=== PATIENT | female | born 1950 | race Caucasian/White ===

== ENCOUNTER 2016-12-13 20:21 | Inpatient (IN) | payer MEDICARE, MEDICAID, SELFPAY ==
[2016-12-13] MEDS ORDERED: SODIUM CHLORIDE 0.9% 10 ML FLUSH FLUSH PRN (21:07)
[2016-12-13] MEDS ORDERED: HYDROmorphone 1 MG INJECTION IV ONE ×3 (21:08→23:23)
[2016-12-13 21:28] LABS: BLOOD UREA NITROGEN 21 MG/DL (7-17); CALCIUM 8.6 MG/DL (8.4-10.2); CALCULATED OSMOLALITY 270 MOs/Kg (270-290); CHLORIDE 96 mEq/L (98-107); GLUCOSE 352 MG/DL (70-99); SODIUM LEVEL 131 mEq/L (137-146); TOTAL PROTEIN 6.7 G/DL (6.3-8.2)
--- NOTE | 2016-12-13 21:30 | DIRPT ---
CLINICAL DATA: 66-year-old female with chest pain EXAM: PORTABLE CHEST 1 VIEW COMPARISON: CT dated 11/03/2016 FINDINGS: Single-view of the chest demonstrates mild emphysematous changes of the lungs. There is no focal consolidation, pleural effusion, or pneumothorax. Right pectoral Port-A-Cath with tip over the upper SVC similar to the CT. A 1.7 x 2.2 cm focal radiopaque is noted over the right mid lung field. This is not seen on the prior CT and may represent a foreign object overlying the patient. Clinical correlation recommended. The cardiac silhouette is within normal limits. The osseous structures appear unremarkable. IMPRESSION: No acute cardiopulmonary process. Electronically Signed By: Dax Rodriguez M.D. On: 12/13/2016 21:27
[2016-12-13 21:31] LABS: PARTIAL THROMB. TIME 25.9 SEC (22-35); PT-INR 1.1
[2016-12-13 21:49] LABS: LEUKOCYTES/URINE TRACE (NEGATIVE); NITRITE/URINE NEG (NEGATIVE); URINE OCCULT BLOOD 1+ (NEG/TRACE)
[2016-12-13 21:53] LABS: SEG NEUTROPHIL 96 % (45-76)
[2016-12-13 21:54] LABS: TOTAL CELL COUNT 100
[2016-12-13] MEDS ORDERED: ACETAMINOPHEN 325 MG/TAB TABLET PO ONE (22:07)
--- NOTE | 2016-12-13 22:16 | EDPRACDOC ---
- General Information Information Source: Patient Mode of Arrival: Car - History of Present Illness Onset: airline captain HPI: PT PRESENTS TODAY WITH FEVER AT HOME OF 104.2. PT HAS PMH OF PANCREATIC CANCER AND IS CURRENTLY FOLLOWING DR. LUTZ. PT HAD CHEMO TREATMENT EARLIER TODAY. PT C/O GENERALIZED ACHES, DIFFUSE ABD PAIN (THAT IS CHRONIC) AND NAUSEA. DENIES CP, SHOB, VOMITING/DIARRHEA. PT DOES NOT APPEAR TO BE IN ANY DISTRESS AT THIS TIME. Relevant History: Reports: Chronic Illness Treated Infection: Antibiotic (DOXYCYCLINE) Max Temperature: 104.2 F Improves With: Reports: Tylenol Symptoms: Reports: Fever, Abdominal Pain, Myalgia, Nausea <Lily Hay - Last Filed: 12/13/16 22:14> <Deric Solano - Last Filed: 12/13/16 22:41> - General Information Chief Complaint: Generalized Weakness Stated Complaint: FEVER HAD CHEMO TODAY C/O BILATERAL LEG,JOINTS & B Time Seen by Provider: 12/13/16 20:44 Home Medications: Home Medications Albuterol Sulfate [Proventil Hfa] 1 - 2 puff INH Q4H 06/08/13 Aspirin [Aspirin EC] 325 mg PO DAILY 06/08/13 Escitalopram Oxalate 20 mg PO DAILY 06/08/13 Hydrochlorothiazide 25 mg PO DAILY 06/08/13 Metoprolol Tartrate 25 mg PO BID 06/08/13 Potassium Chloride [Klor-Con 10] 10 meq PO DAILY 06/08/13 Quinapril HCl [Accupril] 40 mg PO DAILY 06/08/13 Alprazolam [Xanax] 1 mg PO TID 01/14/16 Cyanocobalamin (Vitamin B-12) [Cyanocobalamin Injection] 1,000 mcg IJ QMONTH Epinephrine [Epipen] 0.3 mg IM DAILY PRN 01/14/16 Fexofenadine HCl [Deb] 180 mg PO DAILY PRN 01/14/16 Insulin Lispro [Humalog] 80 unit SQ TIDAC 01/14/16 Omeprazole [Prilosec] 20 mg PO DAILY 01/14/16 Lipase/Protease/Amylase [Jennie Blood 24,000 Units Capsule] 1 cap PO DIR Cetirizine HCl 10 mg PO DAILY 10/29/16 Ergocalciferol (Vitamin D2) [Vitamin D] 50,000 units PO WE 10/29/16 Hydrocodone Bit/Acetaminophen [[place] 10-325 Tablet] 1 tab PO Q6H PRN 10/29/16 Insulin Glargine,Hum.rec.anlog [Toucricketo Solostar] 90 unit SQ DAILY 10/29/16 Promethazine HCl [Phenergan] 12.5 mg PO Q6H PRN 10/29/16 Acetaminophen [Mapap] 500 mg PO .ONCE 12/13/16 Allergies/Adverse Reactions: Allergies Allergy/AdvReac Type Severity Reaction Status Date / Time clindamycin Allergy Severe Hives* Verified 10/26/16 18:42 aminobenzoic acid Allergy Unknown Rash-Genera Verified 10/26/16 18:41 [From [id number]] lized aspirin Allergy Unknown Rash-Genera Verified 10/29/16 08:05 lized atorvastatin calcium Allergy Unknown Rash-Genera Verified 10/26/16 18:41 [From Lipitor] lized carisoprodol [From Soma] Allergy Unknown Rash-Genera Verified 10/26/16 18:41 lized cefaclor [From Ceclor] Allergy Unknown Rash-Genera Verified 10/26/16 18:41 lized hydrocodone bitartrate Allergy Unknown Rash-Genera Verified 10/26/16 18:41 [From Hycomine] lized nitrofurantoin Allergy Unknown Rash-Genera Verified 10/26/16 18:41 macrocrystalline lized [From Macrodantin] oxybenzone Allergy Unknown Rash-Genera Verified 10/26/16 18:41 [From [id number]-[id number]] lized padimate O Allergy Unknown Rash-Genera Verified 10/26/16 18:41 [From [id number]] lized Penicillins Allergy Unknown Rash-Genera Verified 10/26/16 18:41 lized phenylpropanolamine HCl Allergy Unknown Rash-Genera Verified 10/26/16 18:41 [From Hycomine] lized simvastatin [From Zocor] Allergy Unknown Rash-Genera Verified 10/26/16 18:41 lized Sulfa (Sulfonamide Allergy Unknown Rash-Genera Verified 10/26/16 18:41 Antibiotics) lized tetanus and diphtheria Allergy Unknown Rash-Locali Verified 10/26/16 18:41 toxoids zed [Tetanus&Diphtheria Toxoid] venom-honey bee Allergy Unknown Edema-Gener Verified 10/26/16 18:41 [bee venom (honey bee)] alized ciprofloxacin [From Cipro] Allergy Hives* Verified 10/29/16 08:05 hyoscyamine [From Levsin] Allergy Difficulty Verified 10/29/16 08:05 Breathing ibuprofen [From Motrin] Allergy Rash-Genera Verified 10/26/16 18:41 lized Iodinated Contrast Media - Allergy Rash-Genera Verified 10/26/16 18:41 IV Dye lized [IV Dye, Iodine Containing Contrast ] levofloxacin [From Levaquin] Allergy Edema-Oral/ Verified 10/29/16 08:05 Lip naproxen sodium [From Aleve] Allergy Rash-Genera Verified 10/26/16 18:41 lized orphenadrine Allergy See Verified 10/29/16 08:05 Comments niacin AdvReac Severe Anaphylaxis Verified 10/26/16 18:41 [From Niaspan * Extended-Release] ED Past Medical History - History Reviewed Yes Nurses notes reviewed and agree except as marked - Patient Medical History Cardiac History: Reports: Hypertension, Cardiac Catheterization (Neg stress test prior), Hypercholesterolemia Respiratory History: Reports: Asthma, COPD. Denies: Pulmonary Embolism GI/ History: Reports: Kidney Stones Musculoskeletal History: Reports: Arthritis Psychological History: Reports: Depression, Anxiety Systemic History: Reports: Cancer (pacreatic), Anemia, Diabetes Surgical History: Reports: Cholecystectomy, Cardiac Catheterization (Neg stress test prior). Denies: Hysterectomy - Family Medical History Reports: Hypertension (MOTHER, SIBLINGS), Diabetes (SIBLINGS), Cancer (SISTER BREAST CA, FATHER THROAT CA), Stroke (SIBLINGS), Cardiac Disorders (FATHER OF DC, SISTER ) - Social Medical History Smoking Status: Never smoker <Lily Hay - Last Filed: 12/13/16 22:14> EDM Review of Systems - Review of Systems ROS Negative Except as Marked: Yes All systems reviewed and were negative except as marked Constitutional: Fever, Fatigue Eyes: No Symptoms Reported Ears: No Symptoms Reported Throat: No Symptoms Reported Nose: No Symptoms Reported Respiratory: No Symptoms Reported Cardiovascular: No Symptoms Reported Gastrointestinal: Nausea, Pain Genitourinary: No Symptoms Reported Neurological: No Symptoms Reported Musculoskeletal: No Symptoms Reported Integumentary: No Symptoms Reported <Lily Hay - Last Filed: 12/13/16 22:14> - Physical Exam Constitutional: No apparent distress, Alert (Awake), Other (GENERALLY CHRONICALLY ILL APPEARING) Oriented to: Time, Person, Place Last recorded Vital Signs: Last Vital Signs Temp 102.5 F H 12/13/16 21:36 Pulse 98 12/13/16 21:34 Resp 18 12/13/16 21:34 BP 131/61 12/13/16 21:34 Pulse Ox 96 12/13/16 21:34 Oxygen Pulse Oxygen Saturation 96 O2 Device Room Air Oxygen Flow Rate Fraction of Inspired Oxygen ( FIO2) - HEENT Head: Normal Eye Exam: Normal Neck: Normal, Denies Pain, Midline - Respiratory/Cardiovascular Respiratory: Normal - CTA Cardiovascular: Tachycardia - GI Auscultation: Normal Palpation: Normal Tenderness: Diffuse, Moderate - Musculoskeletal Back: Normal Extremities: Normal - Integumentary Skin: Warm, Pale Lymphatics: Normal - Neurologic Cerebellar: Normal Mood Description: Normal Thought: Coherent Perception: Normal <Lily Hay - Last Filed: 12/13/16 22:14> - Physical Exam Last recorded Vital Signs: Last Vital Signs Temp 102.9 F H 12/13/16 22:13 Pulse 93 12/13/16 22:13 Resp 18 12/13/16 22:13 BP 130/60 12/13/16 22:13 Pulse Ox 94 12/13/16 22:13 Oxygen Pulse Oxygen Saturation 94 O2 Device Room Air Oxygen Flow Rate Fraction of Inspired Oxygen ( FIO2) <Deric Solano - Last Filed: 12/13/16 22:41> - Results 12/13/16 20:50 12/13/16 20:50 WBC 3.0 xk/uL (3.8-10.8) L 12/13/16 20:50 RBC 4.09 xM/uL (4.20-5.40) L 12/13/16 20:50 Hgb 11.8 g/dL (12.0-16.0) L 12/13/16 20:50 Hct 35.3 % (36-47) L 12/13/16 20:50 MCV 86 fL (81-99) 12/13/16 20:50 MCH 28.7 pg (27-32) 12/13/16 20:50 MCHC 33.3 g/dl (33-36) 12/13/16 20:50 RDW 16.1 % (11.5-14.5) H 12/13/16 20:50 Plt Count 352 xk/uL (130-400) 12/13/16 20:50 MPV 8.0 fL (7.4-10.4) 12/13/16 20:50 Neut % (Auto) Cancelled 12/13/16 20:50 Lymph % (Auto) Cancelled 12/13/16 20:50 [place] % (Auto) Cancelled 12/13/16 20:50 Eos % (Auto) Cancelled 12/13/16 20:50 Baso % (Auto) Cancelled 12/13/16 20:50 Absolute Neuts (auto) Cancelled 12/13/16 20:50 Absolute Lymphs (auto) Cancelled 12/13/16 20:50 Seg Neuts % (Manual) 96 % (45-76) H 12/13/16 20:50 Band Neutrophils % 0 % (0-5) 12/13/16 20:50 Lymphocytes % (Manual) 4 % (17-44) L 12/13/16 20:50 Absolute Neutrophils 2.88 xk/uL (1.7-8.2) 12/13/16 20:50 Absolute Lymphocytes 0.12 xk/uL (0.65-4.75) L 12/13/16 20:50 Platelet Estimate Plt clumps present (NORMAL) 12/13/16 20:50 RBC Morphology 1+ aniso 12/13/16 20:50 PT 11.0 SEC (9.2-11.2) 12/13/16 20:50 INR 1.1 12/13/16 20:50 APTT 25.9 SEC (22-35) 12/13/16 20:50 Sodium 131 mEq/L (137-146) L 12/13/16 20:50 Potassium 3.6 mEq/L (3.5-5.1) 12/13/16 20:50 Chloride 96 mEq/L (98-107) L 12/13/16 20:50 Carbon Dioxide 23 mMOL/L (22-33) 12/13/16 20:50 Anion Gap 16 mEq/L (8-16) 12/13/16 20:50 BUN 21 MG/DL (7-17) H 12/13/16 20:50 Creatinine 1.10 MG/DL (0.52-1.04) H 12/13/16 20:50 Estimated GFR (MDRD) 50 mL/min (>=60) L 12/13/16 20:50 Glucose 352 MG/DL (70-99) H 12/13/16 20:50 Calculated Osmolality 270 MOs/Kg (270-290) 12/13/16 20:50 Lactic Acid 3.5 mEq/L (0.7-2.1) H 12/13/16 20:50 Calcium 8.6 MG/DL (8.4-10.2) 12/13/16 20:50 Corrected Calcium 9.0 MG/DL (8.4-10.2) 12/13/16 20:50 Total Bilirubin 0.6 MG/DL (0.2-1.3) 12/13/16 20:50 AST 66 IU/L (14-36) H 12/13/16 20:50 ALT 75 IU/L (9-52) H 12/13/16 20:50 Alkaline Phosphatase 116 IU/L (55-165) 12/13/16 20:50 Troponin I < 0.01 ng/mL (<.04) 12/13/16 20:50 Total Protein 6.7 G/DL (6.3-8.2) 12/13/16 20:50 Albumin 3.6 G/DL (3.5-5.0) 12/13/16 20:50 Urine Color Yellow 12/13/16 21:35 Urine Clarity Hazy 12/13/16 21:35 Urine pH 5.0 (5.0-8.0) 12/13/16 21:35 Ur Specific [place] 1.010 12/13/16 21:35 Urine Protein Trace (NEG/TRACE) 12/13/16 21:35 Urine Glucose (UA) 3+ (NEGATIVE) H 12/13/16 21:35 Urine Ketones Neg (NEGATIVE) 12/13/16 21:35 Urine Occult Blood 1+ (NEG/TRACE) H 12/13/16 21:35 Urine Nitrite Neg (NEGATIVE) 12/13/16 21:35 Urine Bilirubin Neg (NEGATIVE) 12/13/16 21:35 Urine Urobilinogen 0.2 MG/DL (0-1) 12/13/16 21:35 Ur Leukocyte Esterase Trace (NEGATIVE) 12/13/16 21:35 Urine RBC 2-5 (0-5) 12/13/16 21:35 Urine WBC 5-10 (0-5) H 12/13/16 21:35 Ur Epithelial Cells 2+ 12/13/16 21:35 Urine Bacteria 1+ (NEG/FEW) H 12/13/16 21:35 Hyaline Casts 0-2 (0-2) 12/13/16 21:35 Urine Mucus Occ (NEG/OCC) 12/13/16 21:35 Lab Results 12/13/16 12/13/16 12/13/16 21:35 20:50 20:50 WBC RBC Hgb Hct MCV MCH MCHC RDW Plt Count MPV Neut % (Auto) Lymph % (Auto) [place] % (Auto) Eos % (Auto) Baso % (Auto) Absolute Neuts (auto) Absolute Lymphs (auto) Seg Neuts % (Manual) Band Neutrophils % Lymphocytes % (Manual) Absolute Neutrophils Absolute Lymphocytes Platelet Estimate RBC Morphology PT 11.0 INR 1.1 APTT 25.9 Sodium Potassium Chloride Carbon Dioxide Anion Gap BUN Creatinine Estimated GFR (MDRD) Glucose Calculated Osmolality Lactic Acid 3.5 H Calcium Corrected Calcium Total Bilirubin AST ALT Alkaline Phosphatase Troponin I Total Protein Albumin Urine Color Yellow Urine Clarity Hazy Urine pH 5.0 Ur Specific [place] 1.010 Urine Protein Trace Urine Glucose (UA) 3+ H Urine Ketones Neg Urine Occult Blood 1+ H Urine Nitrite Neg Urine Bilirubin Neg Urine Urobilinogen 0.2 Ur Leukocyte Esterase Trace Urine RBC 2-5 Urine WBC 5-10 H Ur Epithelial Cells 2+ Urine Bacteria 1+ H Hyaline Casts 0-2 Urine Mucus Occ 12/13/16 12/13/16 20:50 20:50 WBC 3.0 L RBC 4.09 L Hgb 11.8 L Hct 35.3 L MCV 86 MCH 28.7 MCHC 33.3 RDW 16.1 H Plt Count 352 MPV 8.0 Neut % (Auto) Cancelled Lymph % (Auto) Cancelled [place] % (Auto) Cancelled Eos % (Auto) Cancelled Baso % (Auto) Cancelled Absolute Neuts (auto) Cancelled Absolute Lymphs (auto) Cancelled Seg Neuts % (Manual) 96 H Band Neutrophils % 0 Lymphocytes % (Manual) 4 L Absolute Neutrophils 2.88 Absolute Lymphocytes 0.12 L Platelet Estimate Plt clumps present RBC Morphology 1+ aniso PT INR APTT Sodium 131 L Potassium 3.6 Chloride 96 L Carbon Dioxide 23 Anion Gap 16 BUN 21 H Creatinine 1.10 H Estimated GFR (MDRD) 50 L Glucose 352 H Calculated Osmolality 270 Lactic Acid Calcium 8.6 Corrected Calcium 9.0 Total Bilirubin 0.6 AST 66 H ALT 75 H Alkaline Phosphatase 116 Troponin I < 0.01 Total Protein 6.7 Albumin 3.6 Urine Color Urine Clarity Urine pH Ur Specific [place] Urine Protein Urine Glucose (UA) Urine Ketones Urine Occult Blood Urine Nitrite Urine Bilirubin Urine Urobilinogen Ur Leukocyte Esterase Urine RBC Urine WBC Ur Epithelial Cells Urine Bacteria Hyaline Casts Urine Mucus - EKG EKG #1 EKG Time: 21:20 -: Yes EKG interpreted by me Rate: bpm: 99 [place]: Normal Rhythm: NSR Block: None Hypertrophy: None ST: Normal <Lily Hay - Last Filed: 12/13/16 22:14> - Results 12/13/16 20:50 12/13/16 20:50 WBC 3.0 xk/uL (3.8-10.8) L 12/13/16 20:50 RBC 4.09 xM/uL (4.20-5.40) L 12/13/16 20:50 Hgb 11.8 g/dL (12.0-16.0) L 12/13/16 20:50 Hct 35.3 % (36-47) L 12/13/16 20:50 MCV 86 fL (81-99) 12/13/16 20:50 MCH 28.7 pg (27-32) 12/13/16 20:50 MCHC 33.3 g/dl (33-36) 12/13/16 20:50 RDW 16.1 % (11.5-14.5) H 12/13/16 20:50 Plt Count 352 xk/uL (130-400) 12/13/16 20:50 MPV 8.0 fL (7.4-10.4) 12/13/16 20:50 Neut % (Auto) Cancelled 12/13/16 20:50 Lymph % (Auto) Cancelled 12/13/16 20:50 [place] % (Auto) Cancelled 12/13/16 20:50 Eos % (Auto) Cancelled 12/13/16 20:50 Baso % (Auto) Cancelled 12/13/16 20:50 Absolute Neuts (auto) Cancelled 12/13/16 20:50 Absolute Lymphs (auto) Cancelled 12/13/16 20:50 Seg Neuts % (Manual) 96 % (45-76) H 12/13/16 20:50 Band Neutrophils % 0 % (0-5) 12/13/16 20:50 Lymphocytes % (Manual) 4 % (17-44) L 12/13/16 20:50 Absolute Neutrophils 2.88 xk/uL (1.7-8.2) 12/13/16 20:50 Absolute Lymphocytes 0.12 xk/uL (0.65-4.75) L 12/13/16 20:50 Platelet Estimate Plt clumps present (NORMAL) 12/13/16 20:50 RBC Morphology 1+ aniso 12/13/16 20:50 PT 11.0 SEC (9.2-11.2) 12/13/16 20:50 INR 1.1 12/13/16 20:50 APTT 25.9 SEC (22-35) 12/13/16 20:50 Sodium 131 mEq/L (137-146) L 12/13/16 20:50 Potassium 3.6 mEq/L (3.5-5.1) 12/13/16 20:50 Chloride 96 mEq/L (98-107) L 12/13/16 20:50 Carbon Dioxide 23 mMOL/L (22-33) 12/13/16 20:50 Anion Gap 16 mEq/L (8-16) 12/13/16 20:50 BUN 21 MG/DL (7-17) H 12/13/16 20:50 Creatinine 1.10 MG/DL (0.52-1.04) H 12/13/16 20:50 Estimated GFR (MDRD) 50 mL/min (>=60) L 12/13/16 20:50 Glucose 352 MG/DL (70-99) H 12/13/16 20:50 Calculated Osmolality 270 MOs/Kg (270-290) 12/13/16 20:50 Lactic Acid 3.5 mEq/L (0.7-2.1) H 12/13/16 20:50 Calcium 8.6 MG/DL (8.4-10.2) 12/13/16 20:50 Corrected Calcium 9.0 MG/DL (8.4-10.2) 12/13/16 20:50 Total Bilirubin 0.6 MG/DL (0.2-1.3) 12/13/16 20:50 AST 66 IU/L (14-36) H 12/13/16 20:50 ALT 75 IU/L (9-52) H 12/13/16 20:50 Alkaline Phosphatase 116 IU/L (55-165) 12/13/16 20:50 Troponin I < 0.01 ng/mL (<.04) 12/13/16 20:50 Total Protein 6.7 G/DL (6.3-8.2) 12/13/16 20:50 Albumin 3.6 G/DL (3.5-5.0) 12/13/16 20:50 Urine Color Yellow 12/13/16 21:35 Urine Clarity Hazy 12/13/16 21:35 Urine pH 5.0 (5.0-8.0) 12/13/16 21:35 Ur Specific [place] 1.010 12/13/16 21:35 Urine Protein Trace (NEG/TRACE) 12/13/16 21:35 Urine Glucose (UA) 3+ (NEGATIVE) H 12/13/16 21:35 Urine Ketones Neg (NEGATIVE) 12/13/16 21:35 Urine Occult Blood 1+ (NEG/TRACE) H 12/13/16 21:35 Urine Nitrite Neg (NEGATIVE) 12/13/16 21:35 Urine Bilirubin Neg (NEGATIVE) 12/13/16 21:35 Urine Urobilinogen 0.2 MG/DL (0-1) 12/13/16 21:35 Ur Leukocyte Esterase Trace (NEGATIVE) 12/13/16 21:35 Urine RBC 2-5 (0-5) 12/13/16 21:35 Urine WBC 5-10 (0-5) H 12/13/16 21:35 Ur Epithelial Cells 2+ 12/13/16 21:35 Urine Bacteria 1+ (NEG/FEW) H 12/13/16 21:35 Hyaline Casts 0-2 (0-2) 12/13/16 21:35 Urine Mucus Occ (NEG/OCC) 12/13/16 21:35 Lab Results 12/13/16 12/13/16 12/13/16 21:35 20:50 20:50 WBC RBC Hgb Hct MCV MCH MCHC RDW Plt Count MPV Neut % (Auto) Lymph % (Auto) [place] % (Auto) Eos % (Auto) Baso % (Auto) Absolute Neuts (auto) Absolute Lymphs (auto) Seg Neuts % (Manual) Band Neutrophils % Lymphocytes % (Manual) Absolute Neutrophils Absolute Lymphocytes Platelet Estimate RBC Morphology PT 11.0 INR 1.1 APTT 25.9 Sodium Potassium Chloride Carbon Dioxide Anion Gap BUN Creatinine Estimated GFR (MDRD) Glucose Calculated Osmolality Lactic Acid 3.5 H Calcium Corrected Calcium Total Bilirubin AST ALT Alkaline Phosphatase Troponin I Total Protein Albumin Urine Color Yellow Urine Clarity Hazy Urine pH 5.0 Ur Specific [place] 1.010 Urine Protein Trace Urine Glucose (UA) 3+ H Urine Ketones Neg Urine Occult Blood 1+ H Urine Nitrite Neg Urine Bilirubin Neg Urine Urobilinogen 0.2 Ur Leukocyte Esterase Trace Urine RBC 2-5 Urine WBC 5-10 H Ur Epithelial Cells 2+ Urine Bacteria 1+ H Hyaline Casts 0-2 Urine Mucus Occ 12/13/16 12/13/16 20:50 20:50 WBC 3.0 L RBC 4.09 L Hgb 11.8 L Hct 35.3 L MCV 86 MCH 28.7 MCHC 33.3 RDW 16.1 H Plt Count 352 MPV 8.0 Neut % (Auto) Cancelled Lymph % (Auto) Cancelled [place] % (Auto) Cancelled Eos % (Auto) Cancelled Baso % (Auto) Cancelled Absolute Neuts (auto) Cancelled Absolute Lymphs (auto) Cancelled Seg Neuts % (Manual) 96 H Band Neutrophils % 0 Lymphocytes % (Manual) 4 L Absolute Neutrophils 2.88 Absolute Lymphocytes 0.12 L Platelet Estimate Plt clumps present RBC Morphology 1+ aniso PT INR APTT Sodium 131 L Potassium 3.6 Chloride 96 L Carbon Dioxide 23 Anion Gap 16 BUN 21 H Creatinine 1.10 H Estimated GFR (MDRD) 50 L Glucose 352 H Calculated Osmolality 270 Lactic Acid Calcium 8.6 Corrected Calcium 9.0 Total Bilirubin 0.6 AST 66 H ALT 75 H Alkaline Phosphatase 116 Troponin I < 0.01 Total Protein 6.7 Albumin 3.6 Urine Color Urine Clarity Urine pH Ur Specific [place] Urine Protein Urine Glucose (UA) Urine Ketones Urine Occult Blood Urine Nitrite Urine Bilirubin Urine Urobilinogen Ur Leukocyte Esterase Urine RBC Urine WBC Ur Epithelial Cells Urine Bacteria Hyaline Casts Urine Mucus <Deric Solano - Last Filed: 12/13/16 22:41> <Lily Hay - Last Filed: 12/13/16 22:14> - Departure Yes I personally saw and evaluated the patient. Disposition: Admit IP To This Hospital Decision to Admit Time: 22:41 Decision to admit date: 12/13/16 Decision to admit: from ED - Physician Consulted Hospitalist Time Called: 22:41 Provider Called: Ricardo Barrera [employer] Returned Call: 22:41 <Deric Solano - Last Filed: 12/13/16 22:41> - Departure Condition: Stable Final Diagnosis: Neutropenic fever
[2016-12-13] MEDS ORDERED: NS 1,000 ML IV ONE (22:46)
--- NOTE | 2016-12-13 22:52 | HISTPHYS ---
- Chief Complaint fever, neutropenia - History of Present Illness PRIMARY CARE PROVIDER: Dr. Coleman HPI: The patient is a 66 yo woman with pancreatic cancer who had chemo today, and developed a fever at home. Started at 99.9 today and reached 104.5, then 105. Chemo is weekly if WBCs high enough; missed second dose due to low WBC and Plt. Last 2-3 nights had chills. Frequent UTIs. Just finished doxycycline x 10 days for UTI and last day was . Diagnosed in August 2016. Onset: today for fever but had chills x 2-3 nights. Duration: intermittent. Location: not known. Character: high fever with chills. Alleviated by: Nothing. Exacerbated by: Nothing. Lumps that are red on her lower left leg that itch. Associated Symptoms: Chronic abdominal pain is unchanged. Coughing started when chemo started, this month. Small bumps on bottom (actually on labia) and some of them opened up. No vaginal pain or discharge. Bumps on left lower leg that itch. Treatments: none at home except usual medications. - Medical History Cardiac History: Reports: Hypertension, Cardiac Catheterization (Neg stress test prior), Hypercholesterolemia Respiratory History: Reports: Asthma, COPD. Denies: Pulmonary Embolism GI/ History: Reports: Kidney Stones Musculoskeletal History: Reports: Arthritis Systemic History: Reports: Cancer (Pancreatic cancer, diagnosed August 2016. On chemo. Dr. Zepeda.), Anemia, Diabetes Psychological History: Reports: Depression, Anxiety - Surgical History Reports: Cholecystectomy, Cardiac Catheterization (Neg stress test prior). Denies: Hysterectomy - Medictions/Allergies Allergies clindamycin Allergy (Severe, Verified 10/26/16 18:42) Hives* ORAL EDEMA aminobenzoic acid [From [id number]] Allergy (Unknown, Verified 10/26/16 18:41) Rash-Generalized aspirin Allergy (Unknown, Verified 10/29/16 08:05) Rash-Generalized can take in small doses causes stmach pain atorvastatin calcium [From Lipitor] Allergy (Unknown, Verified 10/26/16 18:41) Rash-Generalized carisoprodol [From Soma] Allergy (Unknown, Verified 10/26/16 18:41) Rash-Generalized cefaclor [From Ceclor] Allergy (Unknown, Verified 10/26/16 18:41) Rash-Generalized hydrocodone bitartrate [From Hycomine] Allergy (Unknown, Verified 10/26/16 18:41 ) Rash-Generalized nitrofurantoin macrocrystalline [From Macrodantin] Allergy (Unknown, Verified 18:41) Rash-Generalized oxybenzone [From [id number]] Allergy (Unknown, Verified 10/26/16 18:41) Rash-Generalized padimate O [From Eczzlce-60-Z] Allergy (Unknown, Verified 10/26/16 18:41) Rash-Generalized Penicillins Allergy (Unknown, Verified 10/26/16 18:41) Rash-Generalized phenylpropanolamine HCl [From Hycomine] Allergy (Unknown, Verified 10/26/16 18: 41) Rash-Generalized simvastatin [From Zocor] Allergy (Unknown, Verified 10/26/16 18:41) Rash-Generalized Sulfa (Sulfonamide Antibiotics) Allergy (Unknown, Verified 10/26/16 18:41) Rash-Generalized tetanus and diphtheria toxoids [Tetanus&Diphtheria Toxoid] Allergy (Unknown, Verified 10/26/16 18:41) Rash-Localized venom-honey bee [bee venom (honey bee)] Allergy (Unknown, Verified 10/26/16 18: 41) Edema-Generalized ciprofloxacin [From Cipro] Allergy (Verified 10/29/16 08:05) Hives* hyoscyamine [From Levsin] Allergy (Verified 10/29/16 08:05) Difficulty Breathing ibuprofen [From Motrin] Allergy (Verified 10/26/16 18:41) Rash-Generalized Iodinated Contrast Media - IV Dye [IV Dye, Iodine Containing Contrast ] Allergy (Verified 10/26/16 18:41) Rash-Generalized levofloxacin [From Levaquin] Allergy (Verified 10/29/16 08:05) Edema-Oral/Lip naproxen sodium [From Aleve] Allergy (Verified 10/26/16 18:41) Rash-Generalized orphenadrine Allergy (Verified 10/29/16 08:05) See Comments stomach pain niacin [From Niaspan Extended-Release] Adverse Reaction (Severe, Verified 18:41) Anaphylaxis* Current Medication List: Reviewed Home Medications Albuterol Sulfate [Proventil Hfa] 1 - 2 puff INH Q4H 06/08/13 Aspirin [Aspirin EC] 325 mg PO DAILY 06/08/13 Escitalopram Oxalate 20 mg PO DAILY 06/08/13 Hydrochlorothiazide 25 mg PO DAILY 06/08/13 Metoprolol Tartrate 25 mg PO BID 06/08/13 Potassium Chloride [Klor-Con 10] 10 meq PO DAILY 06/08/13 Quinapril HCl [Accupril] 40 mg PO DAILY 06/08/13 Alprazolam [Xanax] 1 mg PO TID 01/14/16 Cyanocobalamin (Vitamin B-12) [Cyanocobalamin Injection] 1,000 mcg IJ QMONTH Epinephrine [Epipen] 0.3 mg IM DAILY PRN 01/14/16 Fexofenadine HCl [Deb] 180 mg PO DAILY PRN 01/14/16 Insulin Lispro [Humalog] 80 unit SQ TIDAC 01/14/16 Omeprazole [Prilosec] 20 mg PO DAILY 01/14/16 Lipase/Protease/Amylase [Creon Dr 24,000 Units Capsule] 1 cap PO DIR Cetirizine HCl 10 mg PO DAILY 10/29/16 Ergocalciferol (Vitamin D2) [Vitamin D] 50,000 units PO WE 10/29/16 Hydrocodone Bit/Acetaminophen [[place] 10-325 Tablet] 1 tab PO Q6H PRN 10/29/16 Insulin Glargine,Hum.rec.anlog [[place]jeo Solostar] 90 unit SQ DAILY 10/29/16 Promethazine HCl [Phenergan] 12.5 mg PO Q6H PRN 10/29/16 Acetaminophen [Mapap] 500 mg PO .ONCE 12/13/16 - Family History Reports: Hypertension (MOTHER, SIBLINGS), Diabetes (SIBLINGS), Cancer (SISTER BREAST CA, FATHER THROAT CA), Stroke (SIBLINGS), Cardiac Disorders (FATHER OF IN, SISTER ) - Social History Smoking Status: Never smoker Social History: Denies: Alcohol Use, Substance Use Disorder - Review of Systems GENERAL: Fever, chills. Positive for fatigue/malaise. HEENT: No ear pain or discharge. No nasal discharge or bleeding. No throat pain or swelling. No eye pain or eye redness. RESPIRATORY: Coughing. No wheezing, or shortness of breath. CARDIOVASCULAR: No chest pain or palpitations. GI: Chronic abdominal pain. No nausea, vomiting, diarrhea, constipation, or bloody stool. NEUROLOGICAL: No headache or focal weakness. INTEGUMENT: Except as per HPI, no rashes, itching, or lesions. LYMPHATIC SYSTEM: no lymph node swelling or pain. MUSCULOSKELETAL: no new pain or joint swelling. GENITOURINARY: No dysuria or hematuria. ENDOCRINE: No polyuria or polydipsia. HEME: No chronic anemia, bleeding, or easy bruising. - Physical Exam Vital Signs: Initial Vitals Temperature 102.3 F H 12/13/16 20:27 Pulse Rate 114 12/13/16 20:27 Respiratory Rate 20 12/13/16 20:27 Blood Pressure 160/72 12/13/16 20:27 Pulse Oxygen Saturation 93 12/13/16 20:27 - Other Exam Other Exam Findings: GENERAL: Ill-appearing, well nourished, in acute distress. HEENT: Normocephalic, atraumatic; pupils equal and round. Nares patent, without discharge or bleeding. No oropharyngeal lesions or erythema. Mucous membranes are dry. NECK: is supple, no masses, trachea midline. RESPIRATORY: Clear to auscultation bilaterally. Chest wall movements are symmetric. No use of accessory muscles to breathe. No wheezing, rales, rhonchi. CARDIOVASCULAR: Normal S1, S2. No murmurs, rubs, or gallops. PMI non-displaced. Carotids: no carotid bruits. No bradycardia or tachycardia. DP pulses 2+ bilaterally. GI: soft, nontender, non-distended, normal active bowel sounds. No hepatosplenomegaly. INTEGUMENT: On left lower leg lateral aspect: 3 erythematous and palpable nodules in a row. Size of each is 1.5 - 2.5 cm. Mildly tender. On scalp: hundreds of small, 0.2-0.5 cm erythematous papules at sites of hair follicles. (per patient this is chronic since shaving her head) Otherwise, clean, dry, and intact. : External exam: no discharge or erythema. One papule on left labia, approx 0.5 cm diameter, round with smooth borders, mildly tender. MUSCULOSKELETAL: Moving all extremities. No cyanosis. No clubbing. Edema: none bilaterally. 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 NEUROLOGICAL: Cranial nerves 2-12 grossly intact. Motor 4/5 throughout. Reflexes : 2+ bilaterally. Babinski: toes downgoing bilaterally. Intact Finger to nose. Sensory grossly intact to light touch. Intact rapid alternating movements bilaterally. No pronator drift. PSYCHIATRIC: Fully oriented. Normal and appropriate affect. LYMPHATIC: No cervical lymphadenopathy. No supraclavicular lymphadenopathy. - Lab Results Laboratory Tests 12/13/16 12/13/16 12/13/16 20:50 20:50 20:50 WBC 3.0 L RBC 4.09 L Hgb 11.8 L Hct 35.3 L MCV 86 MCH 28.7 MCHC 33.3 RDW 16.1 H Plt Count 352 MPV 8.0 Neut % (Auto) Cancelled Lymph % (Auto) Cancelled Day % (Auto) Cancelled Eos % (Auto) Cancelled Baso % (Auto) Cancelled Absolute Neuts (auto) Cancelled Absolute Lymphs (auto) Cancelled Seg Neuts % (Manual) 96 H Band Neutrophils % 0 Lymphocytes % (Manual) 4 L Monocytes % (Manual) Absolute Neutrophils 2.88 Absolute Lymphocytes 0.12 L Vacuolated Neuts Platelet Estimate Plt clumps present RBC Morphology 1+ aniso PT 11.0 INR 1.1 APTT 25.9 Sodium 131 L Potassium 3.6 Chloride 96 L Carbon Dioxide 23 Anion Gap 16 BUN 21 H Creatinine 1.10 H Estimated GFR (MDRD) 50 L Glucose 352 H POC Capillary Glucose Hemoglobin A1c Calculated Osmolality 270 Lactic Acid Calcium 8.6 Corrected Calcium 9.0 Total Bilirubin 0.6 AST 66 H ALT 75 H Alkaline Phosphatase 116 Troponin I < 0.01 Total Protein 6.7 Albumin 3.6 Urine Color Urine Clarity Urine pH Ur Specific [place] Urine Protein Urine Glucose (UA) Urine Ketones Urine Occult Blood Urine Nitrite Urine Bilirubin Urine Urobilinogen Ur Leukocyte Esterase Urine RBC Urine WBC Ur Epithelial Cells Urine Bacteria Hyaline Casts Urine Mucus 12/13/16 12/13/16 20:50 21:35 WBC RBC Hgb Hct MCV MCH MCHC RDW Plt Count MPV Neut % (Auto) Lymph % (Auto) Day % (Auto) Eos % (Auto) Baso % (Auto) Absolute Neuts (auto) Absolute Lymphs (auto) Seg Neuts % (Manual) Band Neutrophils % Lymphocytes % (Manual) Monocytes % (Manual) Absolute Neutrophils Absolute Lymphocytes Vacuolated Neuts Platelet Estimate RBC Morphology PT INR APTT Sodium Potassium Chloride Carbon Dioxide Anion Gap BUN Creatinine Estimated GFR (MDRD) Glucose POC Capillary Glucose Hemoglobin A1c Calculated Osmolality Lactic Acid 3.5 H Calcium Corrected Calcium Total Bilirubin AST ALT Alkaline Phosphatase Troponin I Total Protein Albumin Urine Color Yellow Urine Clarity Hazy Urine pH 5.0 Ur Specific [place] 1.010 Urine Protein Trace Urine Glucose (UA) 3+ H Urine Ketones Neg Urine Occult Blood 1+ H Urine Nitrite Neg Urine Bilirubin Neg Urine Urobilinogen 0.2 Ur Leukocyte Esterase Trace Urine RBC 2-5 Urine WBC 5-10 H Ur Epithelial Cells 2+ Urine Bacteria 1+ H Hyaline Casts 0-2 Urine Mucus Occ - Diagnostic Findings EK beats per minute. Normal sinus rhythm. Cannot rule out anterior infarct, age undetermined. Reviewed EKG personally. Chest x-ray, viewed personally: EXAM: PORTABLE CHEST 1 VIEW COMPARISON: CT dated 11/03/2016 FINDINGS: Single-view of the chest demonstrates mild emphysematous changes of the lungs. There is no focal consolidation, pleural effusion, or pneumothorax. Right pectoral Port-A-Cath with tip over the upper SVC similar to the CT. A 1.7 x 2.2 cm focal radiopaque is noted over the right mid lung field. This is not seen on the prior CT and may represent a foreign object overlying the patient. Clinical correlation recommended. The cardiac silhouette is within normal limits. The osseous structures appear unremarkable. IMPRESSION: No acute cardiopulmonary process. - Assessment (1) Sepsis A41.9 - SEPSIS, UNSPECIFIED ORGANISM Acute Present on Admission: Yes Qualifiers: Sepsis type: S (2) Acute cystitis without hematuria N30.00 - ACUTE CYSTITIS WITHOUT HEMATURIA Acute Present on Admission: Yes (3) Pancreatic cancer C25.9 - MALIGNANT NEOPLASM OF PANCREAS, UNSPECIFIED Acute Present on Admission: Yes Qualifiers: Pancreatic malignancy location: P (4) Leukopenia D72.819 - DECREASED WHITE BLOOD CELL COUNT, UNSPECIFIED Acute Present on Admission: Yes Qualifiers: Leukopenia type: L Neutropenia type: N - Plan (1) Sepsis A41.9 - SEPSIS, UNSPECIFIED ORGANISM Acute Present on admission. Criteria: Fever 102.8, Pulse 114, WBCs 3. Source: Probably due to UTI. Plan: Sepsis order set. IV antibiotics. Patient has numerous antibiotic allergies; she reports the only antibiotics she can take are doxycycline and tobramycin. Not ideal choices, but will start both of these medications. IV fluids to provide volume. Monitor for signs of volume depletion, monitor blood pressure carefully. If still hypotensive with IV fluids consider pressors. Close monitoring. Telemetry. IVF: initial IVF 30 mL/kg x 1, then 250 mL/hr x 1 L, then maintenance IVF. (2) Acute cystitis without hematuria N30.00 - ACUTE CYSTITIS WITHOUT HEMATURIA Acute Plan: Cultures have been ordered. Start broad-spectrum IV antibiotics. IV antibiotics. Patient has numerous antibiotic allergies; she reports the only antibiotics she can take are doxycycline and tobramycin. Not ideal choices, but will start both of these medications. (3) Pancreatic cancer C25.9 - MALIGNANT NEOPLASM OF PANCREAS, UNSPECIFIED Acute Known pancreatic cancer with recent chemotherapy. Increases her risk of sepsis and severe infection. Management per Heme-Onc. (4) Leukopenia D72.819 - DECREASED WHITE BLOOD CELL COUNT, UNSPECIFIED Acute Present on Admission: Yes Patient's white blood cell count is lower than normal, although it is technically not at the absolute neutropenic level. Her counts may continue to decrease due to recent chemotherapy. Monitor WBCs. (5) Skin Lesions Present on Admission: Yes On left lower leg lateral aspect: 3 erythematous and palpable nodules in a row. Mildly tender. Unknown etiology. Almost appear as similar to to a nodosum lesion. Will monitor. Add IV vancomycin. In summary, this patient is acutely and critically ill. The patient requires treatment of vital organ failure and measures to prevent further life- threatening deterioration of condition. I have spent 65 min in the critical care of this patient. Case Care Discussed with: Patient, Family, Nursing Staff Critical Care: Yes Code: 291 - Focused CV Perfusion Exam Date exam occurred: 12/13/16 Time of Exam: 23:00 Vital Signs: Last Vital Signs See Vitals section. Respiratory: Chest non-tender, Lungs clear, No respiratory distress. negative: Rhonchi, Wheezing Cardiovascular/Chest: Tachycardia (Normal S1, S2). negative: Systolic murmur Capillary Refill: Immediate Peripheral pulses: Absent: Radial (L) (Amputation of left arm; no radial area to palpate.), Full: Radial (R), Dorsalis pedis (R), Dorsalis pedis (L), Posterior tibialis (R), Posterior tibialis (L) Skin Color: negative: Pale, Cyanotic, Jaundiced Skin Turgor: <3 Seconds
[2016-12-13] MEDS ORDERED: DOXYCYCLINE IV ONE (23:22)
[2016-12-13] MEDS ORDERED: D5W IV ONE (23:22)
[2016-12-13] MEDS ORDERED: NS IV ONE (23:45)
[2016-12-13] MEDS ORDERED: TOBRAMYCIN IV ONE (23:45)
[2016-12-13] MEDS ORDERED: NS IV SCH (23:45)
[2016-12-13] MEDS ORDERED: TOBRAMYCIN IV SCH (23:45)
[2016-12-14] MEDS ORDERED: ACETAMINOPHEN 325 MG SUPP PR PRN (01:37)
[2016-12-14] MEDS ORDERED: GUAIFEN 100 MG-DEXTROMETH 10 MG PER 5 ML PO PRN (01:37)
[2016-12-14] MEDS ORDERED: TEMAZEPAM 15 MG CAP PO PRN (01:37)
[2016-12-14] MEDS ORDERED: SENNA CONCENTRATE TAB PO PRN (01:37)
[2016-12-14] MEDS ORDERED: Docusate Sodium 100 MG CAP PO PRN (01:37)
[2016-12-14] MEDS ORDERED: PROMETHAZINE 25 MG/ML VIAL IV PRN (01:37)
[2016-12-14] MEDS ORDERED: SIMETHICONE 80 MG TAB PO PRN (01:37)
[2016-12-14] MEDS ORDERED: NS 1,000 ML IV ONE (01:49)
[2016-12-14] MEDS ORDERED: GLUCAGON 1 MG VIAL SQ PRN (02:00)
[2016-12-14] MEDS ORDERED: ENOXAPARIN 40 MG/0.4 ML PFS SQ SCH (02:00)
[2016-12-14] MEDS ORDERED: DEXTROSE 25 GM/50 ML PFS IV PRN (02:00)
[2016-12-14] MEDS ORDERED: Pharmacy Order Set Alert SCH (02:00)
[2016-12-14] MEDS ORDERED: PANCRELIPASE (CREON) CAP PO SCH (02:00)
[2016-12-14] MEDS ORDERED: GLUCOSE (ORAL GEL) 15 GM TUBE PO PRN (02:00)
[2016-12-14] MEDS ORDERED: ALBUTEROL 0.083% 3 ML NEB NEB PRN (02:00)
[2016-12-14] MEDS ORDERED: Vaccine Screening Complete SCH (02:00)
[2016-12-14] MEDS ORDERED: LORAZEPAM 2 MG/ML VIAL IV ONE (02:33)
[2016-12-14] MEDS: ONDANSETRON HCL 4 MG/2 ML VIAL IV PRN (02:44)
[2016-12-14] MEDS: NS 1,000 ML IV ONE ×2 (02:49→04:02)
[2016-12-14] MEDS: ENOXAPARIN 60 MG/0.6 ML PFS SQ SCH ×2 (03:36→22:41)
[2016-12-14] MEDS: NS 1,000 ML IV SCH ×3 (03:36→20:47)
[2016-12-14] MEDS: HYDROmorphone 1 MG INJECTION IV PRN ×2 (03:43→15:52)
[2016-12-14 04:14] LABS: MPV 7.6 fL (7.4-10.4)
[2016-12-14 04:17] LABS: BLOOD UREA NITROGEN 21 MG/DL (7-17); CALCULATED OSMOLALITY 269 MOs/Kg (270-290); CHLORIDE 99 mEq/L (98-107); GLUCOSE 237 MG/DL (70-99); SODIUM LEVEL 134 mEq/L (137-146); TOTAL PROTEIN 5.6 G/DL (6.3-8.2)
[2016-12-14 04:54] LABS: SEG NEUTROPHIL 95 % (45-76)
[2016-12-14] MEDS: PANTOPRAZOLE 40 MG TAB PO SCH (05:15)
[2016-12-14] MEDS: ALPRAZOLAM 0.5 MG TAB PO SCH ×3 (05:15→20:51)
[2016-12-14] MEDS: REGULAR INSULIN 100 UNITS/ML - 3 ML VIAL SQ SCH ×4 (05:43→20:49)
[2016-12-14] MEDS ORDERED: Non-Formulary Medication ITEM (Alprazolam [Xanax] 1 MG) PO SCH (06:00)
[2016-12-14] MEDS ORDERED: Non-Formulary Medication ITEM (Omeprazole 20 MG) PO SCH (09:00)
[2016-12-14] MEDS ORDERED: TOBRAMYCIN IV SCH (09:00)
[2016-12-14] MEDS ORDERED: INSULIN GLARGINE HUM REC ANLOG 50 UNIT SQ SCH (09:00)
[2016-12-14] MEDS ORDERED: NS IV SCH (09:00)
[2016-12-14] MEDS ORDERED: Vancomycin HCl 0 MG in D5W 500 ML IV SCH (09:00)
[2016-12-14] MEDS ORDERED: POTASSIUM CHLORIDE 10 MEQ PO SCH (09:00)
[2016-12-14] MEDS ORDERED: [UNRECOGNIZED DRUG - OTHER] SQ SCH (09:00)
--- NOTE | 2016-12-14 09:25 | GENMEDPROG ---
Chief Complaint: Urinary tract infection, in the setting of chemotherapy Subjective Note: She has been having her regular chronic abdominal pain, nothing worse than usual. He was having some slight nausea at home, but is better today. Notes Reviewed: Yes Events from last night noted and discussed with Clinical Staff Current Medication List: Reviewed DVT Prophylaxis: Yes - Physical Examination Vital Signs and I&O: Last Vital Signs Temp 98.2 F 12/14/16 08:07 Pulse 77 12/14/16 08:07 Resp 20 12/14/16 08:07 BP 104/51 L 12/14/16 08:07 Pulse Ox 94 12/14/16 08:07 Oxygen Pulse Oxygen Saturation 94 O2 Device Room Air Oxygen Flow Rate Fraction of Inspired Oxygen ( FIO2) Intake & Output 12/12/16 12/13/16 12/14/16 12/15/16 06:59 06:59 06:59 06:59 Intake Total 2267 Output Total 1900 Balance 367 Patient's weight 114.362 kg General: Alert, Oriented x3, Cooperative, Mild distress Lymphatics: Normal Respiratory: Normal - CTA Cardiovascular: Regular rate, No Gallops,Rubs/Murmurs GI: Normal bowel sounds, Soft, Non tender (non distended) Extremities/Musculoskeletal: Other (Normal Tone). negative: Edema, Cyanosis Lab/DI/Studies Reviewed: Laboratory Tests 12/13/16 12/13/16 12/13/16 20:50 20:50 20:50 Hgb 11.8 L INR 1.1 Sodium 131 L BUN Creatinine 1.10 H POC Capillary Glucose Lactic Acid Troponin I 12/13/16 12/14/16 12/14/16 20:50 00:30 00:30 Hgb INR Sodium BUN Creatinine POC Capillary Glucose Lactic Acid 3.5 H 2.9 H Troponin I 0.03 12/14/16 12/14/16 12/14/16 03:30 03:30 05:39 Hgb 10.5 L D INR Sodium 134 L BUN 21 H Creatinine 0.80 POC Capillary Glucose 315 H Lactic Acid Troponin I - Assessment (1) Acute cystitis without hematuria Acute N30.00 - ACUTE CYSTITIS WITHOUT HEMATURIA Comment/Plan: Suspected given her recent frequency and urgency of urination, as well as abnormal urinalysis. She has had frequent UTIs in the past. Extra caution given the fact she is currently on chemotherapy. Treating empirically with IV doxycycline. Follow-up cultures. (2) Leukopenia Acute D72.819 - DECREASED WHITE BLOOD CELL COUNT, UNSPECIFIED Comment/Plan: Due to chemotherapy, she is not neutropenic today. (3) Neutropenic fever Acute D70.9 - NEUTROPENIA, UNSPECIFIED; R50.81 - FEVER PRESENTING WITH CONDITIONS CLASSIFIED ELSEWHERE (4) Pancreatic cancer Acute C25.9 - MALIGNANT NEOPLASM OF PANCREAS, UNSPECIFIED Comment/Plan: Currently seeing chemotherapy. (5) Sepsis Acute A41.9 - SEPSIS, UNSPECIFIED ORGANISM - Plan Continue present care, follow up on urine cultures and continue IV antibiotics. Note that she also has a vulvar lesion noted by the admitting physician for which will be seen by Gynecology.
[2016-12-14] MEDS: Aspirin (Orange Enteric Coated) 325 mg tab PO SCH (09:40)
[2016-12-14] MEDS: PANCRELIPASE (CREON) CAP PO SCH ×6 (09:40→18:06)
[2016-12-14] MEDS: QUINAPRIL HCL 40 MG TAB PO SCH (09:41)
[2016-12-14] MEDS: ESCITALOPRAM OXALATE 10 MG TAB PO SCH (09:42)
[2016-12-14] MEDS: METOPROLOL TARTRATE 25 MG TAB PO SCH ×2 (09:42→20:50)
[2016-12-14] MEDS: CETIRIZINE HCL 10 MG TAB PO SCH (09:43)
[2016-12-14] MEDS: GLARGINE INSULIN (LANTUS) 100 UNITS/ML PEN SQ SCH (09:44)
[2016-12-14] MEDS: ACETAMINOPHEN 325 MG/TAB TABLET PO PRN ×2 (10:55→20:54)
[2016-12-14] MEDS: POTASSIUM CHLORIDE 10 MEQ TABLET PO SCH (13:27)
[2016-12-14] MEDS: D5W IV SCH (13:28)
[2016-12-14] MEDS: DOXYCYCLINE IV SCH (13:28)
--- NOTE | 2016-12-14 15:58 | PCM.CCPN2 ---
Oncology/Hematology Progress Note: HISTORY OF PRESENT ILLNESS: This is a 66-year-old female with clinical stage III pancreatic cancer that was diagnosed in August 2016. She was referred to us by Dr. Cotter at [facility] to consider neoadjuvant chemotherapy. She is currently on gemcitabine/Abraxane and received cycle 2 day 8 on 12/13. After her 1st dose she had severe neutropenia and her doses were reduced by 25%. She has had 2 urinary tract infections since starting her treatment that have both been treated with doxycycline as she is allergic to most classes of antibiotics. When she was here for treatment on the she did have rash/ reaction to insect bite on the lateral side of her lower left leg. This did not appear to be related to her chemotherapy and she did not remember being bitten by any insects. We were treating her topically for a possible fungal infection. The patient called in later that evening with a temp of 104.5 and was directed to go to the emergency room. She was subsequently admitted with a fever and another urinary tract infection. The patient states she felt fine after her chemotherapy in started feeling worse later that evening. She is feeling much better today since being on antibiotics. She has been afebrile since early this morning. She does state that she feels a little achy all over but no other complaints at this time. PHYSICAL EXAMINATION: VITALS: T-98.3, P-78, R-20, BP-107/54, Oxygen saturation- 93%RA.GENERAL: Middle aged female, in no acute distress. HEENT: atraumatic normocephalic. Oropharynx is clear. Neck is supple. No lymphadenopathy. Sclera are anicteric. LUNGS: Clear to auscultation bilaterally. CARDIOVASCULAR: Regular rate and rhythm, no murmurs, rubs, or gallops. ABDOMEN: Soft, nontender , nondistended, no hepatosplenomegaly. LYMPH NODE SURVEY: No cervical, supraclavicular, axillary, or inguinal lymphadenopathy palpated. EXTREMITIES: Rash appearing lesions on the left lateral lower extremity. NEURO: Grossly intact. LABORATORY DATA: Laboratory Last Values WBC 5.2 xk/uL (3.8-10.8) 12/14/16 03:30 RBC 3.66 xM/uL (4.20-5.40) L 12/14/16 03:30 Hgb 10.5 g/dL (12.0-16.0) L D 12/14/16 03:30 Hct 31.5 % (36-47) L 12/14/16 03:30 MCV 86 fL (81-99) 12/14/16 03:30 MCH 28.7 pg (27-32) 12/14/16 03:30 MCHC 33.4 g/dl (33-36) 12/14/16 03:30 RDW 15.6 % (11.5-14.5) H 12/14/16 03:30 Plt Count 266 xk/uL (130-400) 12/14/16 03:30 MPV 7.6 fL (7.4-10.4) 12/14/16 03:30 Neut % (Auto) Cancelled 12/13/16 20:50 Lymph % (Auto) Cancelled 12/13/16 20:50 [place] % (Auto) Cancelled 12/13/16 20:50 Eos % (Auto) Cancelled 12/13/16 20:50 Baso % (Auto) Cancelled 12/13/16 20:50 Absolute Neuts (auto) Cancelled 12/13/16 20:50 Absolute Lymphs (auto) Cancelled 12/13/16 20:50 Seg Neuts % (Manual) 95 % (45-76) H 12/14/16 03:30 Band Neutrophils % 0 % (0-5) 12/14/16 03:30 Lymphocytes % (Manual) 3 % (17-44) L 12/14/16 03:30 Monocytes % (Manual) 2 % (0-10) 12/14/16 03:30 Absolute Neutrophils 4.94 xk/uL (1.7-8.2) 12/14/16 03:30 Absolute Lymphocytes 0.16 xk/uL (0.65-4.75) L 12/14/16 03:30 Vacuolated Neuts Few 12/14/16 03:30 Platelet Estimate Norm (NORMAL) 12/14/16 03:30 RBC Morphology 1+ aniso 12/14/16 03:30 PT 11.0 SEC (9.2-11.2) 12/13/16 20:50 INR 1.1 12/13/16 20:50 APTT 25.9 SEC (22-35) 12/13/16 20:50 Sodium 134 mEq/L (137-146) L 12/14/16 03:30 Potassium 4.0 mEq/L (3.5-5.1) 12/14/16 03:30 Chloride 99 mEq/L (98-107) 12/14/16 03:30 Carbon Dioxide 25 mMOL/L (22-33) 12/14/16 03:30 Anion Gap 14 mEq/L (8-16) 12/14/16 03:30 BUN 21 MG/DL (7-17) H 12/14/16 03:30 Creatinine 0.80 MG/DL (0.52-1.04) 12/14/16 03:30 Estimated GFR (MDRD) > 60 mL/min (>=60) 12/14/16 03:30 Glucose 237 MG/DL (70-99) H 12/14/16 03:30 POC Capillary Glucose 286 MG/DL (70-99) H 12/14/16 10:58 Hemoglobin A1c 8.0 % (4.3-5.7) H 12/14/16 03:30 Calculated Osmolality 269 MOs/Kg (270-290) L 12/14/16 03:30 Lactic Acid 2.9 mEq/L (0.7-2.1) H 12/14/16 00:30 Calcium 8.0 MG/DL (8.4-10.2) L 12/14/16 03:30 Corrected Calcium 9.0 MG/DL (8.4-10.2) 12/14/16 03:30 Total Bilirubin 0.6 MG/DL (0.2-1.3) 12/14/16 03:30 AST 45 IU/L (14-36) H 12/14/16 03:30 ALT 74 IU/L (9-52) H 12/14/16 03:30 Alkaline Phosphatase 85 IU/L (55-165) 12/14/16 03:30 Troponin I 0.02 ng/mL (<.04) 12/14/16 03:30 Total Protein 5.6 G/DL (6.3-8.2) L 12/14/16 03:30 Albumin 3.0 G/DL (3.5-5.0) L 12/14/16 03:30 Urine Color Yellow 12/13/16 21:35 Urine Clarity Hazy 12/13/16 21:35 Urine pH 5.0 (5.0-8.0) 12/13/16 21:35 Ur Specific [place] 1.010 12/13/16 21:35 Urine Protein Trace (NEG/TRACE) 12/13/16 21:35 Urine Glucose (UA) 3+ (NEGATIVE) H 12/13/16 21:35 Urine Ketones Neg (NEGATIVE) 12/13/16 21:35 Urine Occult Blood 1+ (NEG/TRACE) H 12/13/16 21:35 Urine Nitrite Neg (NEGATIVE) 12/13/16 21:35 Urine Bilirubin Neg (NEGATIVE) 12/13/16 21:35 Urine Urobilinogen 0.2 MG/DL (0-1) 12/13/16 21:35 Ur Leukocyte Esterase Trace (NEGATIVE) 12/13/16 21:35 Urine RBC 2-5 (0-5) 12/13/16 21:35 Urine WBC 5-10 (0-5) H 12/13/16 21:35 Ur Epithelial Cells 2+ 12/13/16 21:35 Urine Bacteria 1+ (NEG/FEW) H 12/13/16 21:35 Hyaline Casts 0-2 (0-2) 12/13/16 21:35 Urine Mucus Occ (NEG/OCC) 12/13/16 21:35 A&P: This is a 66-year-old female with clinical stage III pancreatic cancer diagnosed in August 2016. She is currently receiving chemotherapy consisting of gemcitabine/Abraxane and is status post cycle 2 day 8 as of 12/13. She is currently admitted for fever and an UTI and currently receiving IV antibiotics of tobramycin, vancomycin and doxycycline. We will continue following the patient while she is hospitalized. Please call with any questions or concerns.
[2016-12-14] MEDS: PANCRELIPASE (CREON) CAP PO PRN ×2 (16:23→23:19)
[2016-12-15] MEDS: D5W IV SCH ×2 (01:28→12:01)
[2016-12-15] MEDS: DOXYCYCLINE IV SCH ×2 (01:28→12:01)
[2016-12-15] MEDS: NS 1,000 ML IV SCH ×3 (01:38→23:43)
[2016-12-15] MEDS ORDERED: NS IV SCH (02:00)
[2016-12-15] MEDS ORDERED: TOBRAMYCIN IV SCH (02:00)
[2016-12-15] MEDS: PANTOPRAZOLE 40 MG TAB PO SCH (06:04)
[2016-12-15] MEDS: ALPRAZOLAM 0.5 MG TAB PO SCH ×3 (06:04→20:25)
[2016-12-15] MEDS: REGULAR INSULIN 100 UNITS/ML - 3 ML VIAL SQ SCH ×4 (06:09→20:23)
[2016-12-15 07:19] LABS: MPV 7.3 fL (7.4-10.4)
[2016-12-15 07:37] LABS: BLOOD UREA NITROGEN 9 MG/DL (7-17); CALCIUM 7.8 MG/DL (8.4-10.2); CALCULATED OSMOLALITY 263 MOs/Kg (270-290); CHLORIDE 104 mEq/L (98-107); GLUCOSE 137 MG/DL (70-99); SODIUM LEVEL 136 mEq/L (137-146)
[2016-12-15] MEDS: PANCRELIPASE (CREON) CAP PO SCH ×6 (08:39→17:43)
[2016-12-15] MEDS: Aspirin (Orange Enteric Coated) 325 mg tab PO SCH (08:40)
[2016-12-15] MEDS: QUINAPRIL HCL 40 MG TAB PO SCH (08:41)
[2016-12-15] MEDS: ESCITALOPRAM OXALATE 10 MG TAB PO SCH (08:41)
[2016-12-15] MEDS: METOPROLOL TARTRATE 25 MG TAB PO SCH ×2 (08:41→20:24)
[2016-12-15] MEDS: CETIRIZINE HCL 10 MG TAB PO SCH (08:42)
[2016-12-15] MEDS: GLARGINE INSULIN (LANTUS) 100 UNITS/ML PEN SQ SCH (08:44)
[2016-12-15] MEDS ORDERED: ACETAMINOPHEN 325 MG/TAB TABLET PO ONE (10:18)
[2016-12-15] MEDS ORDERED: HYDROmorphone 1 MG INJECTION ONE (10:18)
[2016-12-15] MEDS: HYDROmorphone 1 MG INJECTION IV PRN ×2 (10:21→17:40)
[2016-12-15] MEDS: ACETAMINOPHEN 325 MG/TAB TABLET PO PRN ×2 (10:26→20:34)
--- NOTE | 2016-12-15 11:39 | GENMEDPROG ---
Chief Complaint: Fever, currently undergoing chemotherapy Subjective Note: Doing well and has no acute complaints. She is having some mild lower abdominal discomfort, reminiscent of UTI. Notes Reviewed: Yes Events from last night noted and discussed with Clinical Staff Current Medication List: Reviewed DVT Prophylaxis: Yes - Physical Examination Vital Signs and I&O: Last Vital Signs Temp 99.6 F 12/15/16 10:26 Pulse 75 12/15/16 09:42 Resp 20 12/15/16 09:42 BP 123/63 12/15/16 09:42 Pulse Ox 95 12/15/16 09:42 Oxygen Pulse Oxygen Saturation 95 O2 Device Room Air Oxygen Flow Rate Fraction of Inspired Oxygen ( FIO2) Intake & Output 12/13/16 12/14/16 12/15/16 12/16/16 06:59 06:59 06:59 06:59 Intake Total 2267 4132 240 Output Total 1900 2700 Balance 367 1432 240 Patient's weight 114.362 kg 102.257 kg General: Alert, Oriented x3, Cooperative, Mild distress Neck: Normal Trachea alignment, Normal inspection Lymphatics: Normal Respiratory: Normal - CTA Cardiovascular: Regular rate, No Gallops,Rubs/Murmurs GI: Normal bowel sounds, Soft, Non tender (non distended) Extremities/Musculoskeletal: Other (Normal Tone). negative: Edema, Cyanosis Lab/DI/Studies Reviewed: Laboratory Tests 12/15/16 12/15/16 06:42 06:42 WBC 3.4 L Hgb 9.2 L D Potassium 3.3 L BUN 9 Creatinine 0.60 - Assessment (1) Acute cystitis without hematuria Acute N30.00 - ACUTE CYSTITIS WITHOUT HEMATURIA Comment/Plan: Suspected given her recent frequency and urgency of urination, as well as abnormal urinalysis. She has had frequent UTIs in the past. Extra caution given the fact she is currently on chemotherapy. Treating empirically with IV doxycycline. Follow-up cultures, which have been reincubated. (2) Leukopenia Acute D72.819 - DECREASED WHITE BLOOD CELL COUNT, UNSPECIFIED Qualifiers: Leukopenia type: L Neutropenia type: N Comment/Plan: Due to chemotherapy, she is not neutropenic today. (3) Neutropenic fever Acute D70.9 - NEUTROPENIA, UNSPECIFIED; R50.81 - FEVER PRESENTING WITH CONDITIONS CLASSIFIED ELSEWHERE (4) Pancreatic cancer Acute C25.9 - MALIGNANT NEOPLASM OF PANCREAS, UNSPECIFIED Qualifiers: Pancreatic malignancy location: P Comment/Plan: Currently seeing chemotherapy. (5) Sepsis Acute A41.9 - SEPSIS, UNSPECIFIED ORGANISM Qualifiers: Sepsis type: S Case Care Discussed with: Patient, Consultants, Nursing Staff Total Time: 41
[2016-12-15] MEDS ORDERED: ERGOCALCIFEROL (VITAMIN D2) 50000 UNITS CAP PO SCH (12:00)
[2016-12-15] MEDS: POTASSIUM CHLORIDE 10 MEQ TABLET PO SCH (12:01)
[2016-12-15 14:17] LABS: AUTOMATED BASOPHIL 0.5 % (0-2); AUTOMATED EOSINOPHIL 0.4 % (0-5); AUTOMATED LYMPH 24.1 % (17-44); AUTOMATED MONOCYTE 0.5 % (3-10); AUTOMATED NEUTROPHIL 74.5 % (45-76); MPV 7.1 fL (7.4-10.4)
[2016-12-15] MEDS: ENOXAPARIN 60 MG/0.6 ML PFS SQ SCH (20:22)
[2016-12-15] MEDS: ONDANSETRON HCL 4 MG/2 ML VIAL IV PRN (20:35)
[2016-12-15] MEDS: HYDROCODONE 10 MG/ACETAMIN 325 MG TAB PO PRN (23:44)
[2016-12-16] MEDS ORDERED: ACETAMINOPHEN 325 MG/TAB TABLET PO ONE (00:59)
[2016-12-16] MEDS: ACETAMINOPHEN 325 MG/TAB TABLET PO PRN ×3 (01:06→20:41)
[2016-12-16] MEDS: HYDROmorphone 1 MG INJECTION IV PRN (02:26)
[2016-12-16] MEDS: REGULAR INSULIN 100 UNITS/ML - 3 ML VIAL SQ SCH ×4 (06:03→20:39)
[2016-12-16] MEDS: NS 1,000 ML IV SCH ×3 (06:03→20:35)
[2016-12-16] MEDS: ALPRAZOLAM 0.5 MG TAB PO SCH ×3 (06:04→20:40)
[2016-12-16] MEDS: PANTOPRAZOLE 40 MG TAB PO SCH (06:04)
[2016-12-16 06:51] LABS: AUTOMATED BASOPHIL 0.8 % (0-2); AUTOMATED EOSINOPHIL 1.7 % (0-5); AUTOMATED LYMPH 20.5 % (17-44); AUTOMATED MONOCYTE 0.3 % (3-10); AUTOMATED NEUTROPHIL 76.7 % (45-76); MPV 7.8 fL (7.4-10.4)
[2016-12-16 07:18] LABS: BLOOD UREA NITROGEN 10 MG/DL (7-17); CALCIUM 7.9 MG/DL (8.4-10.2); CALCULATED OSMOLALITY 270 MOs/Kg (270-290); CHLORIDE 105 mEq/L (98-107); GLUCOSE 154 MG/DL (70-99); SODIUM LEVEL 139 mEq/L (137-146)
[2016-12-16] MEDS: PANCRELIPASE (CREON) CAP PO SCH ×6 (07:56→17:52)
[2016-12-16] MEDS: Aspirin (Orange Enteric Coated) 325 mg tab PO SCH (07:57)
[2016-12-16] MEDS: METOPROLOL TARTRATE 25 MG TAB PO SCH ×2 (09:57→20:40)
[2016-12-16] MEDS: ESCITALOPRAM OXALATE 10 MG TAB PO SCH (09:57)
[2016-12-16] MEDS: QUINAPRIL HCL 40 MG TAB PO SCH (09:57)
[2016-12-16] MEDS: CETIRIZINE HCL 10 MG TAB PO SCH (09:58)
[2016-12-16] MEDS: GLARGINE INSULIN (LANTUS) 100 UNITS/ML PEN SQ SCH (09:58)
--- NOTE | 2016-12-16 11:07 | GENMEDPROG ---
Chief Complaint: Fever Subjective Note: A very weak and sick last night when she was febrile. Feel a little better this morning. However, she is feeling weak to the point that she is ambulating , but cannot stand for very long. She also says that she has developed a little bit of a cough, though it is not productive and she does not feel particularly short of breath. DVT Prophylaxis: Yes - Physical Examination Vital Signs and I&O: Last Vital Signs Temp 98.4 F 12/16/16 09:54 Pulse 81 12/16/16 09:54 Resp 20 12/16/16 09:54 BP 135/65 12/16/16 09:54 Pulse Ox 93 12/16/16 09:54 Oxygen Pulse Oxygen Saturation 93 O2 Device Room Air Oxygen Flow Rate Fraction of Inspired Oxygen ( FIO2) Intake & Output 12/14/16 12/15/16 12/16/16 12/17/16 06:59 06:59 06:59 06:59 Intake Total 2267 4132 3719 Output Total 1900 2700 Balance 367 1432 3719 Patient's weight 114.362 kg 102.257 kg 102.767 kg General: Alert, Oriented x3, Cooperative, Mild distress Neck: Normal Trachea alignment, Normal inspection Lymphatics: Normal Respiratory: Normal - CTA Cardiovascular: Regular rate, No Gallops,Rubs/Murmurs GI: Normal bowel sounds, Soft, Non tender (non distended) Extremities/Musculoskeletal: Other (Normal Tone). negative: Edema, Cyanosis Lab/DI/Studies Reviewed: Laboratory Tests 12/16/16 12/16/16 05:55 05:55 WBC 5.4 Hgb 10.0 L Hct 30.0 L Potassium 4.0 BUN 10 Creatinine 0.70 - Assessment (1) Acute cystitis without hematuria Acute N30.00 - ACUTE CYSTITIS WITHOUT HEMATURIA Comment/Plan: Suspected given her recent frequency and urgency of urination, as well as abnormal urinalysis. She has had frequent UTIs in the past. Extra caution given the fact she is currently on chemotherapy. Treating empirically with IV doxycycline. Follow-up cultures, and they have returned negative so all antibiotics were stopped yesterday. Despite this, she had a couple of high fevers last night. As such, I have resumed IV doxycycline. (2) Leukopenia Acute D72.819 - DECREASED WHITE BLOOD CELL COUNT, UNSPECIFIED Qualifiers: Leukopenia type: L Neutropenia type: N Comment/Plan: Due to chemotherapy, she is not neutropenic today. (3) Neutropenic fever Acute D70.9 - NEUTROPENIA, UNSPECIFIED; R50.81 - FEVER PRESENTING WITH CONDITIONS CLASSIFIED ELSEWHERE Comment/Plan: Patient is not neutropenic, but she is currently being treated with chemotherapy for her pancreatic cancer. She is having recurrent fevers since her antibiotics were stopped yesterday. As such, empiric IV antibiotic with doxycycline has been resumed today. I have obtained a chest x-ray, as well as a repeat urinalysis. Will discuss with oncology team this morning, and consider reimaging the patient to include the chest abdomen and pelvis with a contrasted CT scan. (4) Pancreatic cancer Acute C25.9 - MALIGNANT NEOPLASM OF PANCREAS, UNSPECIFIED Qualifiers: Pancreatic malignancy location: P Comment/Plan: Currently seeing chemotherapy. (5) Sepsis Acute A41.9 - SEPSIS, UNSPECIFIED ORGANISM Qualifiers: Sepsis type: S
[2016-12-16] MEDS ORDERED: DIATRIZOATE MEGLMINE/SODIUM 30 ML BOTTLE PO ONE (11:13)
[2016-12-16] MEDS ORDERED: DIPHENHYDRAMINE 50 MG CAP PO ONE (11:15)
[2016-12-16] MEDS: DOXYCYCLINE IV SCH ×2 (11:22→21:55)
[2016-12-16] MEDS: D5W IV SCH ×2 (11:22→21:55)
[2016-12-16] MEDS: POTASSIUM CHLORIDE 10 MEQ TABLET PO SCH (11:28)
[2016-12-16] MEDS ORDERED: Pharmacy Review for Metformin - IV Contrast Given SCH ×2 (12:00)
--- NOTE | 2016-12-16 13:03 | DIRPT ---
CLINICAL DATA: Fever. EXAM: CHEST 2 VIEW COMPARISON: 12/13/2016. FINDINGS: Prior poor catheter noted good anatomic position. Mediastinum hilar structures normal. Cardiomegaly with normal pulmonary vascularity. No focal infiltrate. No pneumothorax. Small left pleural effusion cannot be excluded. IMPRESSION: 1. PowerPort catheter noted in good anatomic position. 2. Cardiomegaly with normal pulmonary vascularity . Small left pleural effusion cannot be excluded . Electronically Signed By: Osmar Gomez On: 12/16/2016 13:00
[2016-12-16] MEDS: HYDROCODONE 10 MG/ACETAMIN 325 MG TAB PO PRN (13:45)
--- NOTE | 2016-12-16 14:18 | DIRPT ---
CLINICAL DATA: Fever, weakness and cough. Acute cystitis. Sepsis. Pancreatic cancer diagnosed on 09/27/2016. EXAM: CT CHEST, ABDOMEN AND PELVIS WITHOUT CONTRAST TECHNIQUE: Multidetector CT imaging of the chest, abdomen and pelvis was performed following the standard protocol without IV contrast. COMPARISON: PET-CT dated 11/03/2016. FINDINGS: CT CHEST FINDINGS Mediastinum/Lymph Nodes: No masses or pathologically enlarged lymph nodes identified on this un-enhanced exam. Small pericardial effusion with a maximum thickness of 12 mm. Lungs/Pleura: Small bilateral pleural effusions. Minimal bilateral dependent atelectasis. No lung nodules or consolidation. Musculoskeletal: Thoracic spine degenerative changes with changes of DISH. CT ABDOMEN PELVIS FINDINGS Hepatobiliary: Cholecystectomy clips. The normal appearing liver. Pancreas: The previously demonstrated approximately 3.7 cm pancreatic head mass currently measures approximately 2.3 x 2.0 cm on image number 65. Spleen: Within normal limits in size. Adrenals/Urinary Tract: The previously noted small left adrenal adenoma is not clearly visualized. A small right re- cyst is unchanged. No urinary tract calculi or hydronephrosis. Stomach/Bowel: No gastrointestinal abnormalities seen. No evidence of appendicitis. Vascular/Lymphatic: No enlarged lymph nodes. Mild atheromatous arterial calcifications. Reproductive: Unremarkable uterus and ovaries. Other: Small umbilical hernia containing fat. Musculoskeletal: Lumbar spine degenerative changes. IMPRESSION: 1. No acute abnormality. 2. Small pericardial effusion. 3. Small bilateral pleural effusions. 4. The previously noted poorly delineated pancreatic head mass appears slightly smaller. Electronically Signed By: Kolby Burris M.D. On: 12/16/2016 14:16
[2016-12-16] MEDS: ENOXAPARIN 60 MG/0.6 ML PFS SQ SCH (18:33)
[2016-12-16] MEDS ORDERED: ESCITALOPRAM OXALATE 10 MG TAB PO ONE (21:00)
[2016-12-17] MEDS: HYDROCODONE 10 MG/ACETAMIN 325 MG TAB PO PRN (04:07)
[2016-12-17] MEDS: NS 1,000 ML IV SCH (05:51)
[2016-12-17] MEDS: ALPRAZOLAM 0.5 MG TAB PO SCH ×2 (05:55→13:29)
[2016-12-17] MEDS: PANTOPRAZOLE 40 MG TAB PO SCH (05:55)
[2016-12-17] MEDS: REGULAR INSULIN 100 UNITS/ML - 3 ML VIAL SQ SCH ×3 (05:56→17:43)
[2016-12-17 06:03] LABS: MPV 7.4 fL (7.4-10.4)
[2016-12-17 06:04] LABS: BLOOD UREA NITROGEN 6 MG/DL (7-17); CALCIUM 7.6 MG/DL (8.4-10.2); CALCULATED OSMOLALITY 267 MOs/Kg (270-290); CHLORIDE 107 mEq/L (98-107); GLUCOSE 122 MG/DL (70-99); SODIUM LEVEL 139 mEq/L (137-146)
[2016-12-17] MEDS: Aspirin (Orange Enteric Coated) 325 mg tab PO SCH (09:18)
[2016-12-17] MEDS: CETIRIZINE HCL 10 MG TAB PO SCH (09:18)
[2016-12-17] MEDS: PANCRELIPASE (CREON) CAP PO SCH ×6 (09:18→17:50)
[2016-12-17] MEDS: QUINAPRIL HCL 40 MG TAB PO SCH (09:21)
[2016-12-17] MEDS: METOPROLOL TARTRATE 25 MG TAB PO SCH (09:21)
[2016-12-17] MEDS: GLARGINE INSULIN (LANTUS) 100 UNITS/ML PEN SQ SCH (09:22)
--- NOTE | 2016-12-17 09:36 | GENMEDPROG ---
Chief Complaint: Recurrent fevers in the setting of chemotherapy for pancreatic cancer Subjective Note: Had another spell of feeling weak and unwell overnight, feels that she had a fever. Also continues to complain of headache, intermittent blurry vision. She is worried and requests a CT scan of the head. Notes Reviewed: Yes Events from last night noted and discussed with Clinical Staff Current Medication List: Reviewed Currently: Reports: Cough, Wheezing, SOB DVT Prophylaxis: Yes - Physical Examination Vital Signs and I&O: Last Vital Signs Temp 98.9 F 12/17/16 09:20 Pulse 82 12/17/16 09:20 Resp 18 12/17/16 06:00 BP 147/65 12/17/16 09:20 Pulse Ox 91 12/17/16 06:00 Oxygen Pulse Oxygen Saturation 91 O2 Device Room Air Oxygen Flow Rate Fraction of Inspired Oxygen ( FIO2) Intake & Output 12/15/16 12/16/16 12/17/16 12/18/16 06:59 06:59 06:59 06:59 Intake Total 4132 3719 3333 Output Total 2700 Balance 1432 3719 3333 Patient's weight 102.257 kg 102.767 kg 119.884 kg General: Alert, Oriented x3, Cooperative, Moderate distress Neck: Normal Trachea alignment, Normal inspection Lymphatics: Normal Respiratory: Diminished, Rales, Rhonchi, Wheezes Cardiovascular: Regular rate, No Gallops,Rubs/Murmurs GI: Normal bowel sounds, Soft, Non tender (non distended) Extremities/Musculoskeletal: Other (Normal Tone). negative: Edema, Cyanosis Lab/DI/Studies Reviewed: Laboratory Tests 12/16/16 12/17/16 12/17/16 05:55 05:25 05:25 WBC 1.9 L Hgb 10.0 L 8.5 L D Potassium 3.4 L BUN 6 L Creatinine 0.60 - Assessment (1) Neutropenic fever Acute D70.9 - NEUTROPENIA, UNSPECIFIED; R50.81 - FEVER PRESENTING WITH CONDITIONS CLASSIFIED ELSEWHERE Comment/Plan: Patient is not neutropenic, but she is currently being treated with chemotherapy for her pancreatic cancer. She was started on empiric antibiotics, which were discontinued after all cultures were negative. However, after stopping the antibiotics she had high fevers, and IV doxycycline was empirically resumed on December 16. She had low -grade temperature earlier this morning, which peaked at 100.3. She had Doppler ultrasounds of the bilateral lower extremities yesterday evening , interpretation is currently pending. Will check V/Q scans of the lungs this morning due to her new hypoxia. She had CT of the abdomen and pelvis yesterday without IV contrast due to her severe contrast allergy, this shows possible shrinkage of her pancreatic mass, but does show small bilateral pleural effusions. Due to her persistent low-grade fever, will attempt ultrasound- guided thoracentesis today for culture data. Will also obtain CT scan of the head. Discussed at length with oncology team this morning. If no etiology is found, and her fevers do not continue, will plan on discharging her home on a course of empiric p.o. doxycycline. (2) Acute cystitis without hematuria Acute N30.00 - ACUTE CYSTITIS WITHOUT HEMATURIA Comment/Plan: Suspected given her recent frequency and urgency of urination, as well as abnormal urinalysis. She has had frequent UTIs in the past. Extra caution given the fact she is currently on chemotherapy. Treating empirically with IV doxycycline. Follow-up cultures, and they have returned negative so all antibiotics were stopped yesterday. Despite this, she had a couple of high fevers last night. As such, I have resumed IV doxycycline. (3) Leukopenia Acute D72.819 - DECREASED WHITE BLOOD CELL COUNT, UNSPECIFIED Qualifiers: Leukopenia type: L Neutropenia type: N Comment/Plan: Due to chemotherapy, she is not neutropenic today. (4) Pancreatic cancer Acute C25.9 - MALIGNANT NEOPLASM OF PANCREAS, UNSPECIFIED Qualifiers: Pancreatic malignancy location: P Comment/Plan: Currently seeing chemotherapy. (5) Sepsis Acute A41.9 - SEPSIS, UNSPECIFIED ORGANISM Qualifiers: Sepsis type: S Case Care Discussed with: Patient, Consultants, Nursing Staff Total Time: 51
--- NOTE | 2016-12-17 09:51 | DIRPT ---
CLINICAL DATA: Bilateral lower extremity pain x4 days. Pancreatic carcinoma. EXAM: BILATERAL LOWER EXTREMITY VENOUS DOPPLER ULTRASOUND TECHNIQUE: Black-scale sonography with compression, as well as color and duplex ultrasound, were performed to evaluate the deep venous system from the level of the common femoral vein through the popliteal and proximal calf veins. COMPARISON: None FINDINGS: Normal compressibility of the common femoral, superficial femoral, and popliteal veins, as well as the proximal calf veins. No filling defects to suggest DVT on grayscale or color Doppler imaging. Doppler waveforms show normal direction of venous flow, normal respiratory phasicity and response to augmentation. IMPRESSION: 1. No evidence of lower extremity deep vein thrombosis, BILATERALLY. Electronically Signed By: Maritza Hernandez M.D. On: 12/17/2016 09:48
[2016-12-17] MEDS: HYDROmorphone 1 MG INJECTION IV PRN (11:07)
--- NOTE | 2016-12-17 11:41 | DIRPT ---
CLINICAL DATA: Fever, severe headache. EXAM: CT HEAD WITHOUT CONTRAST TECHNIQUE: Contiguous axial images were obtained from the base of the skull through the vertex without intravenous contrast. COMPARISON: None. FINDINGS: No acute intracranial abnormality. Specifically, no hemorrhage, hydrocephalus, mass lesion, acute infarction, or significant intracranial injury. No acute calvarial abnormality. Visualized paranasal sinuses and mastoids clear. Orbital soft tissues unremarkable. IMPRESSION: No acute intracranial abnormality. Electronically Signed By: Phu Wallace M.D. On: 12/17/2016 11:38
[2016-12-17] MEDS ORDERED: XENON-133 10 MCI INHALATION INH ONE (12:18)
[2016-12-17] MEDS ORDERED: ALBUMIN, AGGREGATED 5 MCI V IV ONE (12:18)
--- NOTE | 2016-12-17 12:36 | DIRPT ---
CLINICAL DATA: Hypoxia, fever. EXAM: NUCLEAR MEDICINE VENTILATION AND PERFUSION SCAN TECHNIQUE: Perfusion images were obtained in multiple projections after intravenous injection of radiopharmaceutical. Sequential dynamic ventilation images were obtained in standard planar projections following inhalation of radiopharmaceutical. RADIOPHARMACEUTICALS: 9.2 mCi Xe 133 and 5.2 mCi Tc99m MAA IV COMPARISON: Chest x-ray 12/16/2016 FINDINGS: Both ventilation and perfusion portions of this study demonstrate no segmental or subsegmental defects. IMPRESSION: No evidence of pulmonary embolus. Electronically Signed By: Phu Wallace M.D. On: 12/17/2016 12:33
[2016-12-17] MEDS: DOXYCYCLINE IV SCH (12:47)
[2016-12-17] MEDS: D5W IV SCH (12:47)
[2016-12-17] MEDS: POTASSIUM CHLORIDE 10 MEQ TABLET PO SCH (13:28)
[2016-12-17 13:35] LABS: SEG NEUTROPHIL 46 % (45-76); TOTAL CELL COUNT 100
--- NOTE | 2016-12-17 16:26 | DIRPT ---
CLINICAL DATA: 66-year-old female with small pericardial and bilateral pleural effusions. Request is made for thoracentesis. EXAM: CHEST ULTRASOUND COMPARISON: CT scan of the chest, abdomen and pelvis 12/16/2016 FINDINGS: Sonographic interrogation of the chest demonstrates trace pleural fluid bilaterally slightly larger on the right than the left. The volume of fluid is insufficient for sampling. IMPRESSION: Small right and trace left pleural effusions of insufficient volume for percutaneous sampling. Electronically Signed By: Maynor Hale M.D. On: 12/17/2016 16:24
[2016-12-17] MEDS: ACETAMINOPHEN 325 MG/TAB TABLET PO PRN (17:49)
[2016-12-17] MEDS: ENOXAPARIN 60 MG/0.6 ML PFS SQ SCH (17:50)
[2016-12-18] MEDS: ESCITALOPRAM OXALATE 10 MG TAB PO SCH ×3 (00:39→19:58)
[2016-12-18] MEDS: METOPROLOL TARTRATE 25 MG TAB PO SCH ×3 (00:39→19:58)
[2016-12-18] MEDS: ALPRAZOLAM 0.5 MG TAB PO SCH ×4 (00:39→19:51)
[2016-12-18] MEDS: DOXYCYCLINE IV SCH ×3 (01:00→22:33)
[2016-12-18] MEDS: D5W IV SCH ×3 (01:00→22:33)
[2016-12-18] MEDS: REGULAR INSULIN 100 UNITS/ML - 3 ML VIAL SQ SCH ×5 (01:01→22:32)
[2016-12-18] MEDS: ACETAMINOPHEN 325 MG/TAB TABLET PO PRN (01:03)
[2016-12-18] MEDS: PANTOPRAZOLE 40 MG TAB PO SCH (06:01)
[2016-12-18 06:22] LABS: MPV 7.2 fL (7.4-10.4)
[2016-12-18 06:40] LABS: BLOOD UREA NITROGEN 5 MG/DL (7-17); CALCIUM 8.2 MG/DL (8.4-10.2); CALCULATED OSMOLALITY 267 MOs/Kg (270-290); CHLORIDE 104 mEq/L (98-107); GLUCOSE 140 MG/DL (70-99); SODIUM LEVEL 139 mEq/L (137-146)
[2016-12-18] MEDS: Aspirin (Orange Enteric Coated) 325 mg tab PO SCH (09:27)
[2016-12-18] MEDS: PANCRELIPASE (CREON) CAP PO SCH ×7 (09:27→17:53)
[2016-12-18] MEDS: CETIRIZINE HCL 10 MG TAB PO SCH (09:27)
[2016-12-18] MEDS: GLARGINE INSULIN (LANTUS) 100 UNITS/ML PEN SQ SCH (09:33)
[2016-12-18] MEDS: ONDANSETRON HCL 4 MG/2 ML VIAL IV PRN (09:37)
--- NOTE | 2016-12-18 11:03 | GENMEDPROG ---
Chief Complaint: Low-grade fever, weakness Subjective Note: Feels little better. But still quite weak. She is pretty hesitant to talk about going home yet. Notes Reviewed: Yes Events from last night noted and discussed with Clinical Staff Current Medication List: Reviewed Currently: Reports: Cough, Wheezing, SOB DVT Prophylaxis: Yes - Physical Examination Vital Signs and I&O: Last Vital Signs Temp 98.1 F 12/18/16 04:00 Pulse 77 12/18/16 04:00 Resp 18 12/18/16 04:00 BP 163/75 12/18/16 04:00 Pulse Ox 90 L 12/18/16 04:00 Oxygen Pulse Oxygen Saturation 90 O2 Device Room Air Oxygen Flow Rate Fraction of Inspired Oxygen ( FIO2) Intake & Output 12/16/16 12/17/16 12/18/16 12/19/16 06:59 06:59 06:59 06:59 Intake Total 3719 3333 1201 275 Output Total 1100 400 Balance 3719 3333 101 -125 Patient's weight 102.767 kg 119.884 kg 119.777 kg General: Alert, Oriented x3, Cooperative, Moderate distress Neck: Normal Trachea alignment, Normal inspection Lymphatics: Normal Respiratory: Diminished, Rales, Rhonchi. negative: Wheezes Cardiovascular: Regular rate, No Gallops,Rubs/Murmurs GI: Normal bowel sounds, Soft, Non tender (non distended) Extremities/Musculoskeletal: Other (Normal Tone). negative: Edema, Cyanosis Lab/DI/Studies Reviewed: Laboratory Tests 12/18/16 12/18/16 06:00 06:00 WBC 1.5 L Hgb 8.6 L Hct 25.1 L Potassium 3.5 BUN 5 L Creatinine 0.60 - Assessment (1) Neutropenic fever Acute D70.9 - NEUTROPENIA, UNSPECIFIED; R50.81 - FEVER PRESENTING WITH CONDITIONS CLASSIFIED ELSEWHERE Comment/Plan: Patient is not neutropenic, but she is currently being treated with chemotherapy for her pancreatic cancer. She was started on empiric antibiotics, which were discontinued after all cultures were negative. However, after stopping the antibiotics she had high fevers, and IV doxycycline was empirically resumed on December 16. She had low -grade fever once again last night, but not some Tylenol. No evidence of pulmonary embolism or DVT on lower extremity ultrasound or V/Q scan of the lungs. She also had CT scan of the abdomen and pelvis without IV contrast due to her severe allergy, this shows partial shrinkage of her pancreatic mass, but does not show any signs or symptoms of infection. She had small bilateral pleural effusions. These were examined by the interventional radiologist in her to small to safely tap. Also had CT scan of the head due to her severe headaches, these are better and the CT scan of the head is unremarkable. Continue empiric doxycycline for 1 more day. Patient was notified that she should ambulate today and prepared to be discharged home tomorrow as long as she does not have recurrent fever. Would recommend trial course of empiric p.o. doxycycline at discharge. (2) Acute cystitis without hematuria Acute N30.00 - ACUTE CYSTITIS WITHOUT HEMATURIA Comment/Plan: Suspected given her recent frequency and urgency of urination, as well as abnormal urinalysis. She has had frequent UTIs in the past. Extra caution given the fact she is currently on chemotherapy. Treating empirically with IV doxycycline. Continue follow-up cultures, but since they were negative her antibiotics were stopped 2 days ago. This is altered and recurrent high fevers over 102, so empiric doxycycline was resumed, and she has been afebrile since. (3) Leukopenia Acute D72.819 - DECREASED WHITE BLOOD CELL COUNT, UNSPECIFIED Qualifiers: Leukopenia type: L Neutropenia type: N Comment/Plan: Due to chemotherapy, she is not neutropenic today. (4) Pancreatic cancer Acute C25.9 - MALIGNANT NEOPLASM OF PANCREAS, UNSPECIFIED Qualifiers: Pancreatic malignancy location: P Comment/Plan: Currently seeing chemotherapy. (5) Sepsis Acute A41.9 - SEPSIS, UNSPECIFIED ORGANISM Qualifiers: Sepsis type: S
[2016-12-18] MEDS: QUINAPRIL HCL 40 MG TAB PO SCH (11:31)
[2016-12-18] MEDS: POTASSIUM CHLORIDE 10 MEQ TABLET PO SCH (12:01)
[2016-12-18] MEDS: ENOXAPARIN 60 MG/0.6 ML PFS SQ SCH (16:49)
[2016-12-18] MEDS: PANCRELIPASE (CREON) CAP PO PRN ×2 (17:52→20:40)
[2016-12-18] MEDS: HYDROCODONE 10 MG/ACETAMIN 325 MG TAB PO PRN (19:45)
[2016-12-18] MEDS ORDERED: QUINAPRIL HCL 40 MG TAB PO SCH (21:00)
[2016-12-19] MEDS: HYDROCODONE 10 MG/ACETAMIN 325 MG TAB PO PRN ×2 (01:42→12:48)
[2016-12-19 05:35] VITALS: BP 137/72; PULSE 71; TEMP 98.4
[2016-12-19 05:40] VITALS: BMI 40.5
[2016-12-19] MEDS: PANTOPRAZOLE 40 MG TAB PO SCH (06:13)
[2016-12-19] MEDS: ALPRAZOLAM 0.5 MG TAB PO SCH ×2 (06:13→12:48)
[2016-12-19 06:15] LABS: MPV 6.7 fL (7.4-10.4)
[2016-12-19] MEDS: REGULAR INSULIN 100 UNITS/ML - 3 ML VIAL SQ SCH ×2 (06:16→12:17)
[2016-12-19 06:31] LABS: BLOOD UREA NITROGEN 6 MG/DL (7-17); CALCIUM 8.2 MG/DL (8.4-10.2); CALCULATED OSMOLALITY 267 MOs/Kg (270-290); CHLORIDE 105 mEq/L (98-107); GLUCOSE 111 MG/DL (70-99); SODIUM LEVEL 139 mEq/L (137-146)
[2016-12-19] MEDS: PANCRELIPASE (CREON) CAP PO SCH ×4 (08:50→12:20)
[2016-12-19] MEDS: GLARGINE INSULIN (LANTUS) 100 UNITS/ML PEN SQ SCH (08:52)
[2016-12-19] MEDS: Aspirin (Orange Enteric Coated) 325 mg tab PO SCH (08:52)
[2016-12-19] MEDS: METOPROLOL TARTRATE 25 MG TAB PO SCH (08:52)
[2016-12-19] MEDS: CETIRIZINE HCL 10 MG TAB PO SCH (08:52)
[2016-12-19] MEDS: ONDANSETRON HCL 4 MG/2 ML VIAL IV PRN (09:26)
[2016-12-19] MEDS: D5W IV SCH (09:28)
[2016-12-19] MEDS: DOXYCYCLINE IV SCH (09:28)
--- NOTE | 2016-12-19 11:26 | PCM.CCCON2 ---
[phone] [facility] Consult Reason: Oncology (pancreatic cancer), Hematology (pancytopenia) Travel Outside of [place] in the Last 3 Months?: No Consultation Note: History of Present Illness: This is a 66-year-old woman with pancreatic cancer diagnosed 2 months ago and she has received 3 doses of chemotherapy with gemcitabine and Abraxane. We had to skip week 2 of her 1st cycle and she only received week 1 of her 2nd cycle at the beginning of this week. She is due again tomorrow for labs and chemo but I will postpone that to December 27. She was admitted for febrile neutropenia and the source of the fever has not been clear. CT scan does show shrinkage of her pancreatic mass and her CA 19 9 has decreased as well. She has small bilateral pleural effusions but not sufficient to do a thoracentesis. She has now been afebrile for 48 hours and feels better. Her blood counts had a low 0.2 days ago but her white count has now come up from 1.5 to 2.6 today. Her hemoglobin came up from 8.6 to 8.9 but her platelet count decreased from 117,000 to 93,000. Past Medical History: She has diabetes mellitus, protein C deficiency, asthma, sleep apnea, congestive heart failure, hypertension, chronic kidney disease, irritable bowel syndrome, gastroesophageal reflux disease, hypothyroidism, fibromyalgia, anemia , B12 deficiency, and cardiac arrhythmias. Cardiac catheterization revealed a shortened aortic arch. 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 She also has a history of renal lithiasis, 3 herniated discs treated nonsurgically,, osteoarthritis, scoliosis, degenerative disc disease, gouty arthritis, hyperlipidemia, fatty liver, recurrent urinary tract infections , thyroid nodule and positive PPD treated with INH for 1 year. Past Surgical History: She has had right rotator cuff surgery, laparoscopic cholecystectomy, knee surgery, and carpal tunnel surgery. Allergies clindamycin Allergy (Severe, Verified 10/26/16 18:42) Hives* ORAL EDEMA aminobenzoic acid [From [id number]] Allergy (Unknown, Verified 10/26/16 18:41) Rash-Generalized aspirin Allergy (Unknown, Verified 10/29/16 08:05) Rash-Generalized can take in small doses causes stmach pain atorvastatin calcium [From Lipitor] Allergy (Unknown, Verified 10/26/16 18:41) Rash-Generalized carisoprodol [From Soma] Allergy (Unknown, Verified 10/26/16 18:41) Rash-Generalized cefaclor [From Ceclor] Allergy (Unknown, Verified 10/26/16 18:41) Rash-Generalized nitrofurantoin macrocrystalline [From Macrodantin] Allergy (Unknown, Verified 18:41) Rash-Generalized oxybenzone [From [id number]] Allergy (Unknown, Verified 10/26/16 18:41) Rash-Generalized padimate O [From [id number]-C] Allergy (Unknown, Verified 10/26/16 18:41) Rash-Generalized Penicillins Allergy (Unknown, Verified 10/26/16 18:41) Rash-Generalized phenylpropanolamine HCl [From Hycomine] Allergy (Unknown, Verified 10/26/16 18: 41) Rash-Generalized simvastatin [From Zocor] Allergy (Unknown, Verified 10/26/16 18:41) Rash-Generalized Sulfa (Sulfonamide Antibiotics) Allergy (Unknown, Verified 10/26/16 18:41) Rash-Generalized tetanus and diphtheria toxoids [Tetanus&Diphtheria Toxoid] Allergy (Unknown, Verified 10/26/16 18:41) Rash-Localized venom-honey bee [bee venom (honey bee)] Allergy (Unknown, Verified 10/26/16 18: 41) Edema-Generalized ciprofloxacin [From Cipro] Allergy (Verified 10/29/16 08:05) Hives* hyoscyamine [From Levsin] Allergy (Verified 10/29/16 08:05) Difficulty Breathing ibuprofen [From Motrin] Allergy (Verified 10/26/16 18:41) Rash-Generalized Iodinated Contrast Media - IV Dye [IV Dye, Iodine Containing Contrast ] Allergy (Verified 10/26/16 18:41) Rash-Generalized levofloxacin [From Levaquin] Allergy (Verified 10/29/16 08:05) Edema-Oral/Lip naproxen sodium [From Aleve] Allergy (Verified 10/26/16 18:41) Rash-Generalized orphenadrine Allergy (Verified 10/29/16 08:05) See Comments stomach pain niacin [From Niaspan Extended-Release] Adverse Reaction (Severe, Verified 18:41) Anaphylaxis* Home Medications Albuterol Sulfate [Proventil Hfa] 1 - 2 puff INH Q4H 06/08/13 Aspirin [Aspirin EC] 325 mg PO DAILY 06/08/13 Escitalopram Oxalate 40 mg PO HS 06/08/13 Hydrochlorothiazide 25 mg PO DAILY 06/08/13 Metoprolol Tartrate 25 mg PO BID 06/08/13 Potassium Chloride [Klor-Con 10] 10 meq PO DAILY 06/08/13 Quinapril HCl [Accupril] 40 mg PO DAILY 06/08/13 Alprazolam [Xanax] 1 mg PO TID 01/14/16 Cyanocobalamin (Vitamin B-12) [Cyanocobalamin Injection] 1,000 mcg IJ QMONTH Epinephrine [Epipen] 0.3 mg IM DAILY PRN 01/14/16 Fexofenadine HCl [Deb] 180 mg PO DAILY PRN 01/14/16 Insulin Lispro [Humalog] 80 unit SQ TIDAC 01/14/16 Omeprazole [Prilosec] 20 mg PO DAILY 01/14/16 Lipase/Protease/Amylase [Jennie Dr 24,000 Units Capsule] 1 cap PO DIR Cetirizine HCl 10 mg PO DAILY 10/29/16 Ergocalciferol (Vitamin D2) [Vitamin D] 50,000 units PO WE 10/29/16 Hydrocodone Bit/Acetaminophen [[place] 10-325 Tablet] 1 tab PO Q6H PRN 10/29/16 Insulin Glargine,Hum.rec.anlog [Toujeo Solostar] 90 unit SQ DAILY 10/29/16 Promethazine HCl [Phenergan] 12.5 mg PO Q6H PRN 10/29/16 Acetaminophen [Mapap] 500 mg PO .ONCE 12/13/16 Family History: Her brother and 2 sisters also have protein C deficiency. Her sister has had bilateral breast cancers and several cousins have had breast cancer but no one has tested positive for BRCA 1 or 2. Her brother had pancreatic cancer and as did a cousin and uncle. There is also a cousin with colon cancer. Social History: Traveled outside the [place] in the last 3 months? No. She is and her son is here with her. She does have a caregiver 7 days per week. She does not smoke, she does not drink alcohol. Review of Systems: [] Physical Examination: Temperature: 98.4 F (12/19/16 05:35)HR: 71 (12/19/16 05:35)RR: 18 (12/19/16 05: 35)BP: 137/72 (12/19/16 05:35) SAT:93 (12/19/16 05:35) HEENT: pupils are equal, round, reactive to light. Sclera are nonicteric. Posterior pharynx is benign. She does have significant pallor. No thyromegaly. No adenopathy is palpated in the cervical, clavicular, axillary or inguinal areas. Lungs are clear to auscultation and percussion. Heart has a regular rate and rhythm with no murmurs or gallops. Abdomen is soft, no masses, no hepatosplenomegaly or tenderness. Extremities have 1+ edema, and she has absence of the left upper extremity. Neurologic exam is grossly intact. LAB/DI: Laboratory Results - last 24 hr 12/18/16 12/18/16 12/18/16 11:42 16:26 20:38 WBC RBC Hgb Hct MCV MCH MCHC RDW Plt Count MPV Sodium Potassium Chloride Carbon Dioxide Anion Gap BUN Creatinine Estimated GFR (MDRD) Glucose POC Capillary Glucose 230 H 126 H 172 H Calculated Osmolality Calcium Amylase Lipase 12/19/16 12/19/16 12/19/16 05:38 06:05 06:05 WBC 2.6 L RBC 3.03 L Hgb 8.9 L Hct 25.9 L MCV 86 MCH 29.3 MCHC 34.2 RDW 16.1 H Plt Count 93 L MPV 6.7 L Sodium 139 Potassium 3.2 L Chloride 105 Carbon Dioxide 30 Anion Gap 7 L BUN 6 L Creatinine 0.60 Estimated GFR (MDRD) > 60 Glucose 111 H POC Capillary Glucose 118 H Calculated Osmolality 267 L Calcium 8.2 L Amylase Lipase 12/19/16 12/19/16 06:35 06:35 WBC RBC Hgb Hct MCV MCH MCHC RDW Plt Count MPV Sodium Potassium Chloride Carbon Dioxide Anion Gap BUN Creatinine Estimated GFR (MDRD) Glucose POC Capillary Glucose Calculated Osmolality Calcium Amylase < 30 L Cancelled Lipase < 10 L Recommendations: Impression and recommendations: 1. Pancreatic cancer on neoadjuvant chemotherapy with good response after only 3 doses. We will plan to resume treatment in 1 week if possible. 2. Pancytopenia secondary to chemotherapy. I will plan to recheck that her counts later this week. 3. Fever of unknown origin. This has resolved on the current antibiotics and I would send her out on oral antibiotics. 4. Diabetes mellitus. I agree that she is stable for discharge since her blood counts are increasing and her fever has resolved. I will cancel her December 20 appointment but I will see her later this week with repeat labs to follow up on her blood counts and potassium. I will add lipase and amylase to her labs from today to rule out pancreatitis. If she continues to improve, we hope to resume chemotherapy December 27 for 3-6 more doses followed by repeat CT scan. If that looks good , she will go back to see Dr. Jus Cotter at [facility] department of Surgery for evaluation of possible resection. I have reviewed all of this with her and she understands and agrees with this plan of care. My office will contact her to schedule her appointments. Thank you for this consultation.
[2016-12-19] MEDS: POTASSIUM CHLORIDE 10 MEQ TABLET PO SCH (12:19)
[2016-12-19] MEDS: PANCRELIPASE (CREON) CAP PO PRN (15:42)
--- NOTE | 2016-12-19 16:04 | PCM.DCS92 ---
- Final/Secondary Discharge Diagnosis (1) Sepsis Resolved A41.9 - SEPSIS, UNSPECIFIED ORGANISM Present on Admission: Yes sepsis due to unspecified organism A41.9 - Sepsis, unspecified organism Comment: Patient responding nicely to IV doxycycline and can be switched to p.o. today. (2) Pancreatic cancer Chronic C25.9 - MALIGNANT NEOPLASM OF PANCREAS, UNSPECIFIED Present on Admission: Yes head of pancreas C25.0 - Malignant neoplasm of head of pancreas Comment: Currently getting chemotherapy which has shrunken her pancreatic tumor. (3) Pancytopenia Acute D61.818 - OTHER PANCYTOPENIA Present on Admission: Yes Comment: Pancytopenia due to chemotherapy. Plan/Goal/Comment: Follow up Dr. Zepeda this week. (4) Acute cystitis without hematuria Acute N30.00 - ACUTE CYSTITIS WITHOUT HEMATURIA Present on Admission: Yes Comment: Suspected given her recent frequency and urgency of urination, as well as abnormal urinalysis. She has had frequent UTIs in the past. Extra caution given the fact she is currently on chemotherapy. Treating empirically with IV doxycycline. Continue follow-up cultures, but since they were negative her antibiotics were stopped 2 days ago. This is altered and recurrent high fevers over 102, so empiric doxycycline was resumed, and she has been afebrile since. Discharge Disposition: Home Discharge Condition: Improved Cognitive Discharge Status: Unimpaired Fuctional Discharge Status: Walker Assistance Physician Follow up/Referrals: Farzad Coleman MD [Primary Care Provider] - One Week Zohra Zepeda MD [Staff Physician] - Hospital to call w/ appt. (Follow up Dr. Zepeda the latter part of this week with CBC) Home Medications / New Prescriptions: New Doxycycline [Vibramycin] 100 mg PO BID #14 tab Continue Hydrochlorothiazide 25 mg PO DAILY Aspirin [Aspirin EC] 325 mg PO DAILY Potassium Chloride [Klor-Con 10] 10 meq PO DAILY Albuterol Sulfate [Proventil Hfa] 1 - 2 puff INH Q4H Metoprolol Tartrate 25 mg PO BID Escitalopram Oxalate 40 mg PO HS Quinapril HCl [Accupril] 40 mg PO DAILY Omeprazole [Prilosec] 20 mg PO DAILY Insulin Lispro [Humalog] 80 unit SQ TIDAC Cyanocobalamin (Vitamin B-12) [Cyanocobalamin Injection] 1,000 mcg IJ QMONTH Fexofenadine HCl [Deb] 180 mg PO DAILY PRN PRN Reason: Allergy Symptoms Alprazolam [Xanax] 1 mg PO TID Epinephrine [Epipen] 0.3 mg IM DAILY PRN PRN Reason: ALLERGIC REACTION Lipase/Protease/Amylase [Jennie Blood 24,000 Units Capsule] 1 cap PO DIR Insulin Glargine,Hum.rec.anlog [Toudeana Solostar] 90 unit SQ DAILY Ergocalciferol (Vitamin D2) [Vitamin D2 (ergocalciferol)] 50,000 units PO WE Hydrocodone Bit/Acetaminophen [[place] 10-325 Tablet] 1 tab PO Q6H PRN PRN Reason: Pain Cetirizine HCl 10 mg PO DAILY Promethazine HCl [Phenergan] 12.5 mg PO Q6H PRN PRN Reason: Nausea Acetaminophen [Mapap] 500 mg PO .ONCE Discharge Home Medication List Albuterol Sulfate [Proventil Hfa] 1 - 2 puff INH Q4H 06/08/13 [History Confirmed 12/13/16 Last Taken 12/13/16] Aspirin [Aspirin EC] 325 mg PO DAILY 06/08/13 [History Confirmed 12/19/16 Last Taken 12/19/16 08:52] Escitalopram Oxalate 40 mg PO HS 06/08/13 [History Confirmed 12/19/16 Last Taken 12/18/16 19:58] Hydrochlorothiazide 25 mg PO DAILY 06/08/13 [History Confirmed 12/13/16 Last Taken 12/13/16] Metoprolol Tartrate 25 mg PO BID 06/08/13 [History Confirmed 12/19/16 Last Taken 12/19/16 08:52] Potassium Chloride [Klor-Con 10] 10 meq PO DAILY 06/08/13 [History Confirmed Last Taken 12/19/16 12:19] Quinapril HCl [Accupril] 40 mg PO DAILY 06/08/13 [History Confirmed 12/19/16 Last Taken 12/18/16 20:01] Alprazolam [Xanax] 1 mg PO TID 01/14/16 [History Confirmed 12/19/16 Last Taken 12/19/16 12:48] Cyanocobalamin (Vitamin B-12) [Cyanocobalamin Injection] 1,000 mcg IJ QMONTH [History Confirmed 12/13/16 Last Taken 12/13/16] Epinephrine [Epipen] 0.3 mg IM DAILY PRN 01/14/16 [History Confirmed 12/13/16 Last Taken Unknown] Fexofenadine HCl [Deb] 180 mg PO DAILY PRN 01/14/16 [History Confirmed 12/13 Last Taken 01/16/16] Insulin Lispro [Humalog] 80 unit SQ TIDAC 01/14/16 [History Confirmed 12/13/16 Last Taken 12/13/16] Omeprazole [Prilosec] 20 mg PO DAILY 01/14/16 [History Confirmed 12/19/16 Last Taken 12/19/16 06:13] Lipase/Protease/Amylase [Jennie Blood 24,000 Units Capsule] 1 cap PO DIR [History Confirmed 12/19/16 Last Taken 12/19/16 12:20] Cetirizine HCl 10 mg PO DAILY 10/29/16 [History Confirmed 12/19/16 Last Taken 08:52] Ergocalciferol (Vitamin D2) [Vitamin D2 (ergocalciferol)] 50,000 units PO WE 01/13 [History Confirmed 12/19/16 Last Taken 12/15/16 12:02] Hydrocodone Bit/Acetaminophen [[place] 10-325 Tablet] 1 tab PO Q6H PRN 10/29/16 [ History Confirmed 12/19/16 Last Taken 12/19/16 12:48] Insulin Glargine,Hum.rec.anlog [Rae Posada] 90 unit SQ DAILY 10/29/16 [ History Confirmed 12/13/16 Last Taken 12/13/16] Promethazine HCl [Phenergan] 12.5 mg PO Q6H PRN 10/29/16 [History Confirmed Last Taken 12/13/16] Acetaminophen [Mapap] 500 mg PO .ONCE 12/13/16 [History Confirmed 12/13/16 Last Taken 12/13/16 19:00] Doxycycline [Vibramycin] 100 mg PO BID #14 tab 12/19/16 [Rx Confirmed 12/19/16 Last Taken 12/19/16 09:28] 12/19/16 06:05 12/19/16 06:05 Laboratory Results - last 24 hr 12/18/16 12/19/16 12/19/16 20:38 05:38 06:05 WBC RBC Hgb Hct MCV MCH MCHC RDW Plt Count MPV Sodium 139 Potassium 3.2 L Chloride 105 Carbon Dioxide 30 Anion Gap 7 L BUN 6 L Creatinine 0.60 Estimated GFR (MDRD) > 60 Glucose 111 H POC Capillary Glucose 172 H 118 H Calculated Osmolality 267 L Calcium 8.2 L Amylase Lipase 12/19/16 12/19/16 12/19/16 06:05 06:35 06:35 WBC 2.6 L RBC 3.03 L Hgb 8.9 L Hct 25.9 L MCV 86 MCH 29.3 MCHC 34.2 RDW 16.1 H Plt Count 93 L MPV 6.7 L Sodium Potassium Chloride Carbon Dioxide Anion Gap BUN Creatinine Estimated GFR (MDRD) Glucose POC Capillary Glucose Calculated Osmolality Calcium Amylase < 30 L Cancelled Lipase < 10 L 12/19/16 12/19/16 11:39 16:27 WBC RBC Hgb Hct MCV MCH MCHC RDW Plt Count MPV Sodium Potassium Chloride Carbon Dioxide Anion Gap BUN Creatinine Estimated GFR (MDRD) Glucose POC Capillary Glucose 231 H 216 H Calculated Osmolality Calcium Amylase Lipase O2 Device: Room Air Diet at Discharge: Diabetic Activity: Limited - DC Summary Notes HPI/Notes: The patient is a 66 yo woman with pancreatic cancer who had chemo today, and developed a fever at home. Started at 99.9 today and reached 104.5, then 105. Chemo is weekly if WBCs high enough; missed second dose due to low WBC and Plt. Last 2-3 nights had chills. Frequent UTIs. Just finished doxycycline x 10 days for UTI and last day was . Diagnosed in August 2016. Onset: today for fever but had chills x 2-3 nights. Duration: intermittent. Location: not known. Character: high fever with chills. Alleviated by: Nothing. Exacerbated by: Nothing. Lumps that are red on her lower left leg that itch. Associated Symptoms: Chronic abdominal pain is unchanged. Coughing started when chemo started, this month. Small bumps on bottom (actually on labia) and some of them opened up. No vaginal pain or discharge. Bumps on left lower leg that itch. Treatments: none at home except usual medications. Hospital Course Note:: Discharge summary on patient named BRENNAN ALONZO admitted to [facility] on 12/13/16 by Ricardo Barrera MD. Date of discharge is 12/19/2016. She was admitted with sepsis and developed pancytopenia post chemotherapy. She was started on IV antibiotic including doxycycline and defervesced during hospitalization with improvement in her counts except for the thrombocytopenia. Feeling better she was discharged today on oral doxycycline. She was advised to follow up Dr. Zepeda as requested with the in this week with a repeat CBC. I also reviewed with her the results of the CT of her abdomen pelvis which showed shrinkage of her pancreatic tumor from 3.7-2.[address] of the head was ordered and showed no evidence of metastatic disease. CC: Dr. Duane Coleman Total Time: 43 minutes Code: 43940 (>30min.) - Physical Exam Vital Signs: Last Vital Signs Temp 98.4 F 12/19/16 05:35 Pulse 71 12/19/16 05:35 Resp 18 12/19/16 05:35 BP 137/72 12/19/16 05:35 Pulse Ox 93 12/19/16 05:35 Oxygen Pulse Oxygen Saturation 93 O2 Device Room Air Oxygen Flow Rate Fraction of Inspired Oxygen ( FIO2) Constitutional: No apparent distress, Alert (Awake), Other (GENERALLY CHRONICALLY ILL APPEARING) Oriented to: Time, Person, Place - HEENT Head: Normal Eye: Normal Oropharynx: Normal (Pharynx: Moist without exudate,Gums-no swelling, No oropharyngeal lesions or erythema, Mucous membranes are dry.) ENT EAC: Normal (No oropharyngeal lesions or erythema. Mucous membranes are dry. ) TMJ: Normal Nose: No Symptoms Reported - Respiratory/Cardiovascular Respiratory: Diminished. negative: Rales, Rhonchi, Wheezes Cardiovascular: Normal (RRR , Normal S1, S2. No murmurs, rubs, or gallops. PMI non-displaced. Carotids: no carotid bruits. No bradycardia or tachycardia. DP pulses 2+ bilaterally.) - GI Auscultation: Normal Palpation: Normal Tenderness: Non tender Henriquez's Sign: Negative - Musculoskeletal Back: Normal Extremities: Normal - Integumentary Skin: Normal (Warm dry no rashes) Lymphatics: Normal - Neurologic Memory Impaired: Normal Motor Function: Normal (Motor 5/5 throughout.Normal tone, Pulses 2+ No cyanosis or edema, FROM) Cranial Nerve: Normal (CN II-XII intact sensation, strength 5/5) Cerebellar: Normal Mood Description: Normal Thought: Coherent Perception: Normal
[2016-12-19] MEDS ORDERED: HEPARIN 500 UNITS/5 ML (100 UNITS/ML) SYR FLUSH ONE (17:00)
== END 2016-12-19 17:49 | disposition home or self-care (01) | DRG 871 ==
LOC: ED 20:21 → PCU 23:25 → MPS3 12-14 23:03
PROVIDERS: ADMIT Internal Medicine; ATTEND Internal Medicine
DX: A41.9 Sepsis, unspecified organism (principal); D61.810 Antineoplastic chemotherapy induced pancytopenia; C25.0 Malignant neoplasm of head of pancreas; N30.00 Acute cystitis without hematuria; Z87.440 Personal history of urinary (tract) infections; I10 Essential (primary) hypertension; E78.00 Pure hypercholesterolemia, unspecified; J45.909 Unspecified asthma, uncomplicated; J44.9 Chronic obstructive pulmonary disease, unspecified; Z87.442 Personal history of urinary calculi; M19.90 Unspecified osteoarthritis, unspecified site; E11.9 Type 2 diabetes mellitus without complications; F41.8 Other specified anxiety disorders; Z88.8 Allergy status to other drugs, medicaments and biological substances; Z88.1 Allergy status to other antibiotic agents; Z88.0 Allergy status to penicillin; Z88.2 Allergy status to sulfonamides; Z79.899 Other long term (current) drug therapy; Z79.82 Long term (current) use of aspirin; Z79.4 Long term (current) use of insulin; L98.9 Disorder of the skin and subcutaneous tissue, unspecified; R50.81 Fever presenting with conditions classified elsewhere
CPT/HCPCS: 36415; 70450; 71010; 71020; 71250; 74176; 76604; 78582; 80048; 80053; 81001; 82043; 82150; 82962; 83036; 83605; 83690; 84484; 85007; 85025; 85027; 85610; 85730; 87040; 87086; 87804; 93005; 93970; 96361; 96372; 96374; 99223; 99285; A9540; A9558; J1170; J1642; J1650; J2060; J2405; J3260; J3370; J3490; J7030; J7060; J7070